=== PATIENT | female | born 1945 | race Caucasian/White ===

== ENCOUNTER 2017-12-30 17:06 | Emergency (ER) | payer SELFPAY ==
[2017-12-30 17:16] VITALS: BP 149/87; PULSE 88; RESP 18; TEMP 98.2; O2SAT 96
--- NOTE | 2017-12-30 17:36 | EDPHY ---
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 Today she was seen at the [facility] today at 11:00 a.m. and complained of a severe headache and nausea and vomiting. They noticed the deficits in her face and recommended she come to the ER to rule out stroke. The patient and her daughter however went to the wrong hospital and then decided to go out to lunch and then went back to the doctor's office before coming here. She states that over the last few hours her headache is completely resolved. No more nausea vomiting. No fever or trauma. She states that she feels completely normal and baseline. She does have left-sided facial droop and tongue deviation but states that this is normal. Her daughter confirms this. No weakness in her extremities. She did not receive any medications. REVIEW OF SYSTEMS: Constitutional: denies: chills, fever, recent illness, recent injury EENTM: denies: blurred vision, double vision, nose congestion Respiratory: denies: cough, shortness of breath Cardiac: denies: chest pain, irregular heart rate, lightheadedness, palpitations Gastrointestinal/Abdominal: denies: abdominal pain, diarrhea, nausea, vomiting, blood streaked stools Genitourinary: denies: dysuria, frequency, hematuria, pain Musculoskeletal: denies: joint pain, muscle pain Skin: denies: lesions, rash, jaundice, bruising Neurological: denies: headache, numbness, paresthesia, tingling, dizziness, weakness Hematologic/Lymphatic: denies: blood clots, easy bleeding, easy bruising Immunologic/allergic: denies: HIV/AIDS, transplant EXAM: GENERAL: Well-appearing, well-nourished and in no acute distress. HEAD: Atraumatic, normocephalic. EYES: Pupils equal round and reactive to light, extraocular movements intact, sclera anicteric, conjunctiva are normal. ENT: TMs normal, nares patent, oropharynx clear without exudates. Moist mucous membranes. NECK: Normal range of motion, supple without lymphadenopathy or JVD. LUNGS: Breath sounds clear to auscultation bilaterally and equal. No wheezes rales or rhonchi. HEART: Regular rate and rhythm without murmurs, rubs or gallops. ABDOMEN: Soft, nontender, normoactive bowel sounds. No guarding, no rebound. No masses appreciated. BACK: No CVA tenderness, no spinal tenderness, step-offs or deformities EXTREMITIES: Normal range of motion, no pitting or edema. No clubbing or cyanosis. NEUROLOGICAL: Right tongue deviation, left-sided facial droop when smiling which she and her daughter confirm a baseline. Normal speech. 5/5 strength, normal movement in all extremities, normal sensation, normal finger to nose, no pronator drift PSYCH: Normal mood, normal affect. SKIN: Warm, dry, normal turgor, no visible rashes or lesions. Source: Patient, Family Exam Limitations: Language barrier (Cardiac Cath Lab Radiology Technologist used) - Medical/Surgical History Hx Asthma: No Hx Chronic Respiratory Disease: No Hx Diabetes: Yes Hx Cardiac Disease: Yes Hx Renal Disease: No Hx Cirrhosis: No Hx Alcoholism: No Hx HIV/AIDS: No Hx Splenectomy or Spleen Trauma: No Other PMH: DM, head injuries, HTN, right BKA - Family History Significant Family History: No pertinent family hx - Social History Smoking Status: Never smoked Alcohol Use: Sober Drug Use: None Constitutional: Initial Vital Signs Temperature (C) 36.8 C 12/30/17 17:10 Heart Rate 88 12/30/17 17:10 Respiratory Rate 18 12/30/17 17:10 Blood Pressure 149/87 H 12/30/17 17:10 O2 Sat (%) 96 12/30/17 17:10 O2 Delivery Mode Room Air Allergies/Adverse Reactions: No Known Allergies Allergy (Unverified 12/30/17 17:09) Home Medications: Medication Instructions Recorded Insulin Lispro 12/30/17 Levimere 12/30/17 Lisinopril 12/30/17 Omeprazole 12/30/17 metFORMIN HCL 12/30/17 Medical Decision Making ED Course/Re-evaluation: The patient and her daughter state that she is now completely at her baseline and symptom free. I did offer workup but they declined. She then asked me for a prescription for vitamins. We discussed that there [id number]. She and her daughter happy with this in her eager to go home. We discussed indications for returning. Differential Diagnosis: Partial list of the Differential diagnosis considered include but were not limited to; headache, CVA, hemorrhage and although unlikely based on the history and physical exam, I also considered dissection, infection, trauma. I discussed these differential diagnoses and the plan with the patient as well as the usual and expected course. The patient understands that the diagnosis is provisional and that in medicine we are not always correct and that further workup is often warranted. Usual and customary warnings were given. All of the patient's questions were answered. The patient was instructed to return to the emergency department should the symptoms at all worsen or return, otherwise to followup with the physician as we discussed. Departure - Departure Disposition: Home, Routine, Self-Care Clinical Impression: Diabetes Qualifiers: Diabetes mellitus type: other specified (including JALEESA) Diabetes mellitus retirement insulin use: with panel machine tender use Diabetes mellitus complication status : with unspecified complications Qualified Code(s): E13.8 - Other specified diabetes mellitus with unspecified complications; Z79.4 - supplier quality specialist (current) use of insulin; Z79.4 - supplier quality specialist (current) use of insulin; Z79.4 - supplier quality specialist ( current) use of insulin; Z79.4 - supplier quality specialist (current) use of insulin Condition: Fair Instructions: Diabetes in the Older Adult (ED) Referrals: [facility] [Other] - As per Instructions Print Language: Greek
== END 2017-12-30 17:41 | disposition home or self-care (01) ==
DX: E13.8 Other specified diabetes mellitus with unspecified complications (principal); I10 Essential (primary) hypertension; Z79.4 Long term (current) use of insulin

== ENCOUNTER → 2018-04-08 | Outpatient (CLI) | payer OTHER | LOC: FIMAGING 10:34 | DX: I77.1 Stricture of artery (principal); I70.90 Unspecified atherosclerosis; S88.11 Complete traumatic amputation at level between knee and ankle ==

== ENCOUNTER 2018-12-19 15:08 | Inpatient (IN) | payer OTHER ==
--- NOTE | 2018-12-19 15:36 | EDPHY ---
H & P Time Seen by Provider: 12/19/18 15:10 HPI/ROS: CHIEF COMPLAINT: Stroke alert HISTORY OF PRESENT ILLNESS: Patient is a 72-year-old female whose children bring her to the emergency department because of some confusion and weakness in the left side of her face. The patient is Ukrainian-speaking only in even with an asl interpreter present the exam is very difficult. Son reports that she has a history of diabetes insulin-dependent as well as breast cancer with remote mastectomy and no recurrence and also CVA about 5 years ago the took her month or 2 to recover. Her son is not sure but he thinks that that was also on the left side of her face. She did tell her son that she had a mild headache today. He states that she has also had intermittent nausea throughout the last week. She is not on any blood thinners. Patient was last seen normal at 9:00 p.m. Last night. She slept until around noon today when family noticed the symptoms and brought her in. This is about 18 hours after last known well time. Severity: Moderate Modifying factors: None REVIEW OF SYSTEMS: Constitutional: denies: chills, fever, recent illness, recent injury EENTM: See HPI denies: blurred vision, double vision, nose congestion Respiratory: denies: cough, shortness of breath Cardiac: denies: chest pain, irregular heart rate, lightheadedness, palpitations Gastrointestinal/Abdominal: denies: abdominal pain, diarrhea, nausea, vomiting, blood streaked stools Genitourinary: denies: dysuria, frequency, hematuria, pain Musculoskeletal: denies: joint pain, muscle pain Skin: denies: lesions, rash, jaundice, bruising Neurological: denies: headache, numbness, paresthesia, tingling, dizziness, weakness Hematologic/Lymphatic: denies: blood clots, easy bleeding, easy bruising Immunologic/allergic: denies: HIV/AIDS, transplant 10 systems reviewed and negative except as noted EXAM: GENERAL: Well-appearing, well-nourished moderate distress HEAD: Atraumatic, normocephalic. EYES: Pupils equal round and reactive to light, extraocular movements intact, sclera anicteric, conjunctiva are normal. ENT: TMs normal, nares patent, oropharynx clear without exudates. Moist mucous membranes. NECK: Normal range of motion, supple without lymphadenopathy or JVD. LUNGS: Breath sounds clear to auscultation bilaterally and equal. No wheezes rales or rhonchi. HEART: Regular rate and rhythm without murmurs, rubs or gallops. ABDOMEN: Soft, nontender, normoactive bowel sounds. No guarding, no rebound. No masses appreciated. BACK: No CVA tenderness, no spinal tenderness, step-offs or deformities EXTREMITIES: Normal range of motion, no pitting or edema. No clubbing or cyanosis. NEUROLOGICAL: Left-sided facial droop, difficult to tell if it involved the forehead or not. No tongue deviation. Patient does not speak but response to commands from her son but has a difficult time following those commands precisely. Able to elevate legs without difficulty. No pronator drift. 5/5 strength, normal sensation, normal reflexes NIH stroke score of 6 because of partial gaze palsy they can be overcome. She primary looks to the right. Also partial hemianopia. Partial paralysis of the lower face on the left with possible involvement of the upper forehead. No drift in any of the 4 extremities. But this is difficult to test for because she is confused. Mild to moderate aphasia but no dysphagia. And 1+ inattention. PSYCH: Normal mood, normal affect. SKIN: Warm, dry, normal turgor, no visible rashes or lesions. Source: Patient Exam Limitations: No limitations - Medical/Surgical History Hx Asthma: No Hx Chronic Respiratory Disease: No Hx Diabetes: Yes Hx Cardiac Disease: Yes Hx Renal Disease: No Hx Cirrhosis: No Hx Alcoholism: No Hx HIV/AIDS: No Hx Splenectomy or Spleen Trauma: No Other PMH: DM, previous CVA, breast cancer with left mastectomy, head injuries, HTN, right BKA - Family History Significant Family History: No pertinent family hx - Social History Smoking Status: Never smoked Alcohol Use: None Constitutional: Initial Vital Signs Temperature (C) 36.6 C 12/19/18 15:36 Heart Rate 75 12/19/18 15:36 Respiratory Rate 18 12/19/18 15:36 Blood Pressure 187/98 H 12/19/18 15:36 O2 Sat (%) 97 12/19/18 15:36 O2 Delivery Mode Room Air Allergies/Adverse Reactions: No Known Allergies Allergy (Verified 12/19/18 15:35) Home Medications: Medication Instructions Recorded Herbals/Supplements -Info Only 1 ea PO DAILY 12/19/18 Insulin Detemir [Levemir Flextouch] 12 unit SQ HS 12/19/18 Lisinopril [Zestril 5 mg (*)] 5 mg PO DAILY 12/19/18 Medical Decision Making - Diagnostics EKG Interpretation: An EKG obtained and was read and documented in trace view. Please see trace view for full reading and report. Sinus rhythm, no acute ischemia Imaging Results: Imaging Impressions Head CT 12/19/18 15:17 Impression: 1. Mild atrophy. 2. No acute hemorrhage, hydrocephalus, or mass effect. 3. Severe cerebrovascular atherosclerosis. 4. No definite acute infarct. 5. Severe microvascular ischemic gliosis. 6. Multiple old lacunar infarcts bilateral basal ganglia, bilateral thalami, and old infarcts in the left temporal and occipital lobes. 7. Consider MRI of the brain, if there is continued clinical concern. Findings and recommendations discussed with Emergency Department physician, Joaquín Gonzalez, at 15:32 hours, 12/19/2018. Final report concurs with initial preliminary interpretation. Chest X-Ray 12/19/18 15:27 Impression: 1. Bilateral lower lobe pneumonia. 2. Cardiomegaly. Head CTA 12/19/18 15:48 Impression: 1. Left ICA critical stenosis extending for 2 cm with 99% ICA stenosis. 2. Right ICA moderate atherosclerotic stenosis is approximately 60%. 3. Patent vertebrobasilar system with a dominant right vertebral artery and atherosclerotic calcified plaque at the origins of both vertebral arteries and irregularity of the basilar artery suggesting cerebrovascular atherosclerosis. Measurement of carotid stenosis is based on the residual internal carotid diameter with [place] Symptomatic Carotid Endarterectomy Trial (NASCET) based stenosis levels. CT Angiogram of the Brain Clinical Indications: Left facial weakness. Technique: CT angiogram of the brain and neck was performed with the uneventful intravenous administration of 85 mL Isovue-370 contrast. Multiplanar reconstructions including 3D reconstructions performed and evaluated on [employer] workstation in order to better evaluate the [place] vessels. Images were manipulated by the radiologist at the computer workstation. Dose reduction techniques were utilized. Findings: Major vessels of the [place] are adequately displayed, demonstrating moderate atherosclerotic plaque bilateral cavernous internal carotid arteries. Multiple areas of mild atherosclerotic stenosis of the left middle cerebral artery branches. Multiple areas of moderate to severe atherosclerotic stenosis of the right middle cerebral artery bifurcation. Bilateral anterior cerebral arteries appear patent. origin of the right posterior cerebral artery. Superior sagittal sinus, transverse sinuses, and major veins demonstrate no evidence of intraluminal thrombi. Impression: 1. Moderate cerebrovascular atherosclerosis involving bilateral cavernous internal carotid arteries and right middle cerebral artery bifurcations. 2. No definite intraluminal thrombi. Findings and recommendations discussed with Emergency Department physician, Joaquín Gonzalez, at 1645 hours, 12/19/2018. Final report concurs with initial preliminary interpretation. Findings and recommendations given to Dr. Joey Barriga at 1800 hour, 12/19/2018. Neck CTA 12/19/18 15:48 Impression: 1. Left ICA critical stenosis extending for 2 cm with 99% ICA stenosis. 2. Right ICA moderate atherosclerotic stenosis is approximately 60%. 3. Patent vertebrobasilar system with a dominant right vertebral artery and atherosclerotic calcified plaque at the origins of both vertebral arteries and irregularity of the basilar artery suggesting cerebrovascular atherosclerosis. Measurement of carotid stenosis is based on the residual internal carotid diameter with [place] Symptomatic Carotid Endarterectomy Trial (NASCET) based stenosis levels. CT Angiogram of the Brain Clinical Indications: Left facial weakness. Technique: CT angiogram of the brain and neck was performed with the uneventful intravenous administration of 85 mL Isovue-370 contrast. Multiplanar reconstructions including 3D reconstructions performed and evaluated on [employer] workstation in order to better evaluate the [place] vessels. Images were manipulated by the radiologist at the computer workstation. Dose reduction techniques were utilized. Findings: Major vessels of the [place] are adequately displayed, demonstrating moderate atherosclerotic plaque bilateral cavernous internal carotid arteries. Multiple areas of mild atherosclerotic stenosis of the left middle cerebral artery branches. Multiple areas of moderate to severe atherosclerotic stenosis of the right middle cerebral artery bifurcation. Bilateral anterior cerebral arteries appear patent. origin of the right posterior cerebral artery. Superior sagittal sinus, transverse sinuses, and major veins demonstrate no evidence of intraluminal thrombi. Impression: 1. Moderate cerebrovascular atherosclerosis involving bilateral cavernous internal carotid arteries and right middle cerebral artery bifurcations. 2. No definite intraluminal thrombi. Findings and recommendations discussed with Emergency Department physician, Joaquín Gonzalez, at 1645 hours, 12/19/2018. Final report concurs with initial preliminary interpretation. Findings and recommendations given to Dr. Joey Barriga at 1800 hour, 12/19/2018. Imaging: Discussed imaging studies w/ call center receptionist Radiologist ED Course/Re-evaluation: 3:45 p.m. Discussed the case with Dr. Dao from [facility]. He agrees that she is not a tPA candidate. He requests CT angio. 5:00 p.m. discussed the case with General surgery who will consult. Recommends medical admission. 5:10 p.m. discussed the case with Dr. Hernandez who will admit. 5:30 p.m. discussed the case with Dr. Amaya from [facility]. She agrees with the plan to admit and have surgery intervene during this admission. Differential Diagnosis: Partial list of the Differential diagnosis considered include but were not limited to; CVA, hypoglycemia, and although unlikely based on the history and physical exam, I also considered hemorrhage, infection. - Data Points Laboratory Results: Laboratory Results 12/19/18 15:29 12/19/18 15:29 12/19/18 12/19/18 12/19/18 16:55 15:32 15:32 WBC RBC Hgb POC Hgb 14.6 gm/dL gm/dL (12.6-16.3) Hct POC Hct 43 % % (38-47) MCV MCH MCHC RDW Plt Count MPV Neut % (Auto) Lymph % (Auto) [place] % (Auto) Eos % (Auto) Baso % (Auto) Nucleat RBC Rel Count Absolute Neuts (auto) Absolute Lymphs (auto) Absolute Monos (auto) Absolute Eos (auto) Absolute Basos (auto) Absolute Nucleated RBC Immature Gran % Immature Gran # PT INR APTT POC Sodium 140 mEq/L mEq/L (135-145) Sodium POC Potassium 3.8 mEq/L mEq/L (3.3-5.0) Potassium POC Chloride 102 mEq/L mEq/L (97-110) Chloride Carbon Dioxide POC Total CO2 25 mEq/L mEq/L (22-31) Anion Gap POC BUN 18 mg/dL mg/dL (7-23) BUN Creatinine POC Creatinine 0.6 mg/dL mg/dL (0.6-1.0) Estimated GFR Glucose POC Glucose 250 mg/dL H mg/dL (70-100) Hemoglobin A1c Estim Average Glucose Calcium POC Troponin I 0.00 ng/mL ng/mL (0.00-0.08) Urine Color PALE YELLOW Urine Appearance CLEAR Urine pH 8.0 H (5.0-7.5) Ur Specific [place] 1.016 (1.002-1.030) Urine Protein 2+ H (NEGATIVE) Urine Ketones NEGATIVE (NEGATIVE) Urine Blood NEGATIVE (NEGATIVE) Urine Nitrate NEGATIVE (NEGATIVE) Urine Bilirubin NEGATIVE (NEGATIVE) Urine Urobilinogen NEGATIVE EU EU (0.2-1.0) Ur Leukocyte Esterase NEGATIVE (NEGATIVE) Urine RBC 1-3 /hpf /hpf (0-3) Urine WBC 1-3 /hpf /hpf (0-3) Ur Epithelial Cells TRACE /lpf /lpf (NONE-1+) Urine Glucose 1+ H (NEGATIVE) 12/19/18 12/19/18 12/19/18 15:29 15:29 15:29 WBC RBC Hgb POC Hgb Hct POC Hct MCV MCH MCHC RDW Plt Count MPV Neut % (Auto) Lymph % (Auto) [place] % (Auto) Eos % (Auto) Baso % (Auto) Nucleat RBC Rel Count Absolute Neuts (auto) Absolute Lymphs (auto) Absolute Monos (auto) Absolute Eos (auto) Absolute Basos (auto) Absolute Nucleated RBC Immature Gran % Immature Gran # PT 12.3 SEC SEC (12.0-15.0) INR 0.95 (0.83-1.16) APTT 28.0 SEC SEC (23.0-38.0) POC Sodium Sodium 136 mEq/L mEq/L (135-145) POC Potassium Potassium 4.1 mEq/L mEq/L (3.5-5.2) POC Chloride Chloride 104 mEq/L mEq/L (97-110) Carbon Dioxide 25 mEq/l mEq/l (22-31) POC Total CO2 Anion Gap 7 mEq/L mEq/L (6-14) POC BUN BUN 19 mg/dL mg/dL (7-23) Creatinine 0.7 mg/dL mg/dL (0.6-1.0) POC Creatinine Estimated GFR > 60 Glucose 238 mg/dL H mg/dL (70-100) POC Glucose Hemoglobin A1c Pending Estim Average Glucose Pending Calcium 9.4 mg/dL mg/dL (8.5-10.4) POC Troponin I Urine Color Urine Appearance Urine pH Ur Specific [place] Urine Protein Urine Ketones Urine Blood Urine Nitrate Urine Bilirubin Urine Urobilinogen Ur Leukocyte Esterase Urine RBC Urine WBC Ur Epithelial Cells Urine Glucose 12/19/18 15:29 WBC 6.05 10^3/uL 10^3/uL (3.80-9.50) RBC 4.59 10^6/uL 10^6/uL (4.18-5.33) Hgb 13.8 g/dL g/dL (12.6-16.3) POC Hgb Hct 40.1 % % (38.0-47.0) POC Hct MCV 87.4 fL fL (81.5-99.8) MCH 30.1 pg pg (27.9-34.1) MCHC 34.4 g/dL g/dL (32.4-36.7) RDW 12.7 % % (11.5-15.2) Plt Count 203 10^3/uL 10^3/uL (150-400) MPV 12.0 fL H fL (8.7-11.7) Neut % (Auto) 68.4 % % (39.3-74.2) Lymph % (Auto) 24.0 % % (15.0-45.0) [place] % (Auto) 6.8 % % (4.5-13.0) Eos % (Auto) 0.0 % L % (0.6-7.6) Baso % (Auto) 0.5 % % (0.3-1.7) Nucleat RBC Rel Count 0.0 % % (0.0-0.2) Absolute Neuts (auto) 4.14 10^3/uL 10^3/uL (1.70-6.50) Absolute Lymphs (auto) 1.45 10^3/uL 10^3/uL (1.00-3.00) Absolute Monos (auto) 0.41 10^3/uL 10^3/uL (0.30-0.80) Absolute Eos (auto) 0.00 10^3/uL L 10^3/uL (0.03-0.40) Absolute Basos (auto) 0.03 10^3/uL 10^3/uL (0.02-0.10) Absolute Nucleated RBC 0.00 10^3/uL 10^3/uL (0-0.01) Immature Gran % 0.3 % % (0.0-1.1) Immature Gran # 0.02 10^3/uL 10^3/uL (0.00-0.10) PT INR APTT POC Sodium Sodium POC Potassium Potassium POC Chloride Chloride Carbon Dioxide POC Total CO2 Anion Gap POC BUN BUN Creatinine POC Creatinine Estimated GFR Glucose POC Glucose Hemoglobin A1c Estim Average Glucose Calcium POC Troponin I Urine Color Urine Appearance Urine pH Ur Specific [place] Urine Protein Urine Ketones Urine Blood Urine Nitrate Urine Bilirubin Urine Urobilinogen Ur Leukocyte Esterase Urine RBC Urine WBC Ur Epithelial Cells Urine Glucose Medications Given: Discontinued Medications Aspirin (Aspirin) 325 mg PO EDNOW ONE Stop: 12/19/18 16:45 Last Admin: 12/19/18 16:46 Dose: 325 mg Sodium Chloride (Ns) 1,000 mls @ 0 mls/hr IV ONCE ONE; Wide Open PRN Reason: Protocol Stop: 12/19/18 15:39 Last Admin: 12/19/18 15:50 Dose: 1,000 mls Point of Care Test Results: Chemistry 12/19/18 12/19/18 15:32 15:32 POC Sodium 140 mEq/L mEq/L (135-145) POC Potassium 3.8 mEq/L mEq/L (3.3-5.0) POC Chloride 102 mEq/L mEq/L (97-110) POC Total CO2 25 mEq/L mEq/L (22-31) POC BUN 18 mg/dL mg/dL (7-23) POC Creatinine 0.6 mg/dL mg/dL (0.6-1.0) POC Glucose 250 mg/dL H mg/dL (70-100) POC Troponin I 0.00 ng/mL ng/mL (0.00-0.08) ISTAT H&H 12/19/18 15:32 POC Hgb 14.6 gm/dL gm/dL (12.6-16.3) POC Hct 43 % % (38-47) Departure - Departure Disposition: [facility] Inpatient Acute Clinical Impression: Acute ischemic stroke, Carotid stenosis, bilateral Condition: Fair
[2018-12-19] MEDS ORDERED: NS 1,000 ML IV ONE (15:38)
[2018-12-19 15:41] LABS: PLATELET COUNT 203 10^3/uL (150-400)
[2018-12-19] MEDS ORDERED: IOPAMIDOL (ISOVUE 370) 100 ML BTL IV ONE (15:53)
[2018-12-19 16:00] LABS: INR 0.95 (0.83-1.16); PROTIME(PATIENT) 12.3 SEC (12.0-15.0)
[2018-12-19] MEDS ORDERED: ASPIRIN 325 MG TAB PO ONE (16:44)
[2018-12-19] MEDS ORDERED: LABETALOL HCL 5 MG/ML 20 ML MDV IVP PRN (17:26)
--- NOTE | 2018-12-19 17:31 | PDGENHP ---
History and Physical - Chief Complaint confusion - History of Present Illness 72yo Togolese speaking F with history of CVA (no residual deficits), diabetes, hypertension who is brought to the ED by her children due to confusion and left facial droop. Patient is unable to provide information; history obtained from son with whom she lives. She was last seen normal prior to going to bed around 9pm lat night. Slept until around 11am today, which was late for her. Family noticed that she was confused when she woke up and having difficulty putting on her right leg prosthesis. While eating lunch, family noted left facial droop and her drooling out of the left side of her mouth. She reported to her son that she couldn't see when driving to the ED. In the ED, a stroke alert was called. She was evaluated by [facility] teleneurology. No TPA was given her last known normal was roughly 18 hours prior. Non-contrasted CT of her head showed no acute findings. CTA of head and neck showed critical stenosis (99%) of left carotid and 60% stenosis of right carotid artery. Dr Barriga of surgery was consulted regarding these findings. She was given 325mg of aspirin and is being admitted for additional evaluation and management. Case discussed with ED physician Joaquín Aparicio. History Information - Allergies/Home Medication List Allergies/Adverse Reactions: No Known Allergies Allergy (Verified 12/19/18 15:35) Home Medications: Herbals/Supplements -Info Only 1 ea PO DAILY 12/19/18 [Last Taken 12/19/18] Insulin Detemir [Levemir Flextouch] 12 unit SQ HS 12/19/18 [Last Taken 12/18/18] Lisinopril [Zestril 5 mg (*)] 5 mg PO DAILY 12/19/18 [Last Taken 12/19/18] I have personally reviewed and updated: family history, medical history, social history, surgical history - Past Medical History Additional medical history: insulin dependent diabetes, HTN, CVA with no residual deficits (occurred 4-5 years ago in [place]), breast cancer, GERD - Surgical History Additional surgical history: Right BKA (complication of diabetes), right mastectomy - Family History Positive for: non-pertinent - Social History Smoking Status: Never smoked Alcohol Use: None Drug Use: None Additional social history: Has been living with son in [place] since 11/2017. Previously lived in [place]. Review of Systems Review of Systems: ROS: 10pt was reviewed & negative except for what was stated in HPI & below Physical Exam Physical Exam: Temp Pulse Resp BP Pulse Ox 36.6 C 76 16 194/88 H 95 12/19/18 15:36 12/19/18 17:29 12/19/18 17:29 12/19/18 17:29 12/19/18 17:29 Constitutional: no apparent distress Eyes: PERRL, anicteric sclera Ears, Nose, Mouth, Throat: dry mucous membranes Cardiovascular: regular rate and rhythym, no murmur, rub, or gallop, No edema Respiratory: no respiratory distress, no rales or rhonchi, clear to auscultation Gastrointestinal: normoactive bowel sounds, soft, non-tender abdomen, no palpable masses Genitourinary: no bladder fullness, no bladder tenderness Skin: warm, normal color, no rashes or abrasions, no fluctuance, no induration, No mottled Neurologic: facial droop, other (alert, oriented to person and place only, tongue protrudes to right, significant left upper and lower facial droop, otherwise CN and motor strength appear intact), No weakness Psychiatric: encephalopathic Lab Data & Imaging Review 12/19/18 15:29 12/19/18 15:29 WBC 6.05 10^3/uL (3.80-9.50) 12/19/18 15:29 RBC 4.59 10^6/uL (4.18-5.33) 12/19/18 15:29 Hgb 13.8 g/dL (12.6-16.3) 12/19/18 15:29 POC Hgb 14.6 gm/dL (12.6-16.3) 12/19/18 15:32 Hct 40.1 % (38.0-47.0) 12/19/18 15:29 POC Hct 43 % (38-47) 12/19/18 15:32 MCV 87.4 fL (81.5-99.8) 12/19/18 15:29 MCH 30.1 pg (27.9-34.1) 12/19/18 15:29 MCHC 34.4 g/dL (32.4-36.7) 12/19/18 15:29 RDW 12.7 % (11.5-15.2) 12/19/18 15: Plt Count 203 10^3/uL (150-400) 12/19/18 15: MPV 12.0 fL (8.7-11.7) H 12/19/18 15:29 Neut % (Auto) 68.4 % (39.3-74.2) 12/19/18 15: Lymph % (Auto) 24.0 % (15.0-45.0) 12/19/18 15:29 Collin % (Auto) 6.8 % (4.5-13.0) 12/19/18 15: Eos % (Auto) 0.0 % (0.6-7.6) L 12/19/18 15: Baso % (Auto) 0.5 % (0.3-1.7) 12/19/18 15: Nucleat RBC Rel Count 0.0 % (0.0-0.2) 12/19/18 15: Absolute Neuts (auto) 4.14 10^3/uL (1.70-6.50) 12/19/18 15: Absolute Lymphs (auto) 1.45 10^3/uL (1.00-3.00) 12/19/18 15: Absolute Monos (auto) 0.41 10^3/uL (0.30-0.80) 12/19/18 15:29 Absolute Eos (auto) 0.00 10^3/uL (0.03-0.40) L 12/19/18 15: Absolute Basos (auto) 0.03 10^3/uL (0.02-0.10) 12/19/18 15: Absolute Nucleated RBC 0.00 10^3/uL (0-0.01) 12/19/18 15: Immature Gran % 0.3 % (0.0-1.1) 12/19/18 15: Immature Gran # 0.02 10^3/uL (0.00-0.10) 12/19/18 15:29 PT 12.3 SEC (12.0-15.0) 12/19/18 15: INR 0.95 (0.83-1.16) 12/19/18 15:29 APTT 28.0 SEC (23.0-38.0) 12/19/18 15:29 POC Sodium 140 mEq/L (135-145) 12/19/18 15:32 Sodium 136 mEq/L (135-145) 12/19/18 15:29 POC Potassium 3.8 mEq/L (3.3-5.0) 12/19/18 15:32 Potassium 4.1 mEq/L (3.5-5.2) 12/19/18 15:29 POC Chloride 102 mEq/L (97-110) 12/19/18 15:32 Chloride 104 mEq/L (97-110) 12/19/18 15:29 Carbon Dioxide 25 mEq/l (22-31) 12/19/18 15:29 POC Total CO2 25 mEq/L (22-31) 12/19/18 15:32 Anion Gap 7 mEq/L (6-14) 12/19/18 15:29 POC BUN 18 mg/dL (7-23) 12/19/18 15:32 BUN 19 mg/dL (7-23) 12/19/18 15:29 Creatinine 0.7 mg/dL (0.6-1.0) 12/19/18 15:29 POC Creatinine 0.6 mg/dL (0.6-1.0) 12/19/18 15:32 Estimated GFR > 60 12/19/18 15:29 Glucose 238 mg/dL (70-100) H 12/19/18 15:29 POC Glucose 250 mg/dL (70-100) H 12/19/18 15:32 Calcium 9.4 mg/dL (8.5-10.4) 12/19/18 15:29 POC Troponin I 0.00 ng/mL (0.00-0.08) 12/19/18 15:32 Urine Color PALE YELLOW 12/19/18 16:55 Urine Appearance CLEAR 12/19/18 16:55 Urine pH 8.0 (5.0-7.5) H 12/19/18 16:55 Ur Specific Rosie 1.016 (1.002-1.030) 12/19/18 16:55 Urine Protein 2+ (NEGATIVE) H 12/19/18 16:55 Urine Ketones NEGATIVE (NEGATIVE) 12/19/18 16:55 Urine Blood NEGATIVE (NEGATIVE) 12/19/18 16:55 Urine Nitrate NEGATIVE (NEGATIVE) 12/19/18 16:55 Urine Bilirubin NEGATIVE (NEGATIVE) 12/19/18 16:55 Urine Urobilinogen NEGATIVE EU (0.2-1.0) 12/19/18 16:55 Ur Leukocyte Esterase NEGATIVE (NEGATIVE) 12/19/18 16:55 Urine RBC 1-3 /hpf (0-3) 12/19/18 16:55 Urine WBC 1-3 /hpf (0-3) 12/19/18 16:55 Ur Epithelial Cells TRACE /lpf (NONE-1+) 12/19/18 16:55 Urine Glucose 1+ (NEGATIVE) H 12/19/18 16:55 Assessment & Plan Assessment: 72yo Togolese speaking F with history of CVA (no residual deficits), diabetes, hypertension who is brought to the ED by her children due to confusion and left facial droop found to have acute stroke. Plan: #Acute ischemic cerebral CVA: Right sided watershed infarct and 2 smaller cortical infarcts. She has not been hypotensive. Involvement of multiple territories raises concern for thromboembolic disease. She has critical stenosis of carotids which could be culprit. No acute thrombus was seen on CTA of her head/neck. She does have significant neurologic deficits as outlined in exam. - Out of window for TPA - Neurology consultation order placed - Start aspirin 81mg (she was not on any antiplatelet therapy prior to this despite history of CVA in past), atorvastatin 40mg - TTE w/bubble, telemetry - Permissive hypertension (SBP<220, DBP<120) - PT/OT/EQUIPMENT MAINTENANCE TECHNICIAN evaluation #Critical carotid stenosis: 99% on left, 60% on right. - Dr Barriga of general surgery consulted. Plan for surgical management once acute stroke stabilizes. #Acute metabolic encephalopathy: Related to stroke. At risk for delirium. - Avoid centrally acting medications #Diabetes - Reduce home glargine from 12 to 6 units qhs. Start SSI #H/o breast cancer s/p right mastectomy VTE ppx: SCDs Diet: failed swallow study in ED. will start normal saline overnight. needs formal EQUIPMENT MAINTENANCE TECHNICIAN eval in AM Code: full per discussion with son Dispo: Admit as inpatient
[2018-12-19] MEDS ORDERED: ENALAPRILAT DIHYDRATE 2.5 MG/2 ML VIAL IVP PRN (18:35)
[2018-12-19] MEDS ORDERED: D50W 25 GM/50 ML SYR IVP PRN (18:36)
[2018-12-19] MEDS ORDERED: NS 1,000 ML IV SCH (20:15)
[2018-12-19] MEDS ORDERED: INSULIN GLARGINE 100 UNITS/ML UNIT SC SCH (21:00)
[2018-12-19] MEDS: INSULIN GLARGINE 100 UNITS/ML UNIT SC SCH (21:06)
--- NOTE | 2018-12-20 05:25 | GCON ---
[f rep st] CONSULTATION DATE OF CONSULTATION: 12/19/2018 REASON FOR EVALUATION: Stroke. REQUESTING PHYSICIAN: Joaquín Gonzalez MD. 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 She was noted to be somewhat lethargic last evening without any specific complaints today. Her sons noticed that she was unable to move the left side of her body, along with a left-sided facial droop with a right-sided headache. Per emergency room records, she was also with complaints of nausea. The patient's history is difficult to obtain directly, even via turner machine operator and her son. Significantly, the patient normally does ambulate without difficulty with the use of her prosthesis without limitations in distance. She denies any antecedent history of chest pain. She denies any current visual changes or difficulty swallowing. She is unaware of recurrent symptoms. Per records, she may have suffered from a prior remote stroke as well. PAST MEDICAL HISTORY: Hypertension, diabetes, breast carcinoma, history of closed head injury. PAST SURGICAL HISTORY: Right mastectomy, right below-knee amputation. HOME MEDICATIONS: Lispro, Levemir, lisinopril, omeprazole, metformin. ALLERGIES: No known drug allergies. SOCIAL HISTORY: No alcohol. No tobacco. She lives at home with 2 sons. FAMILY HISTORY: Noncontributory. REVIEW OF SYSTEMS: Notable for acute stroke symptoms. PHYSICAL EXAMINATION: ADMITTING VITALS: Temperature 36.6, blood pressure 190/ 100, heart rate 75, respirations 18. GENERAL: Patient is alert, appropriate, comfortable. HEENT: Pupils are equally round and reactive to light and accommodation. Extraocular muscles are intact. NECK: 2+ carotid pulses without appreciable bruit. No vertebral bruits. HEART: Regular without murmur. LUNGS: Clear bilaterally. ABDOMEN: Soft and nontender. No pulsatile masses. No bruits. EXTREMITIES: 2+ radial, brachial, carotid, femoral pulses. Absent bilateral popliteal pulses as well as left pedal pulses. Well-healed right below-knee amputation stump. NEUROLOGIC: Speech is normal. Notable left-sided facial droop as well as left upper and lower extremity weakness. Sensation symmetric bilateral upper and lower extremities. LABORATORY DATA: Hemoglobin 14, white count 6, platelets of 200. INR 0.95. Electrolytes within reference range. Glucose 250. Troponin negative. IMAGING: CT head and neck images were directly reviewed on PACS and with on- call radiologist. CT head with multiple scattered lacunar infarcts bilaterally with chronic age-related atrophy. CT neck: Critical left carotid stenosis with 2 cm segment calcific plaque with relatively preserved proximal and distal carotid arteries, right neck with approximately 60% mixed plaque with chronic calcific plaque as well as soft plaque contributing to focal proximal internal carotid artery narrowing. IMPRESSIONS: 1. Acute stroke. 2. Bilateral carotid artery stenosis, left greater than right. 3. History of diabetes. 4. History of hypertension. 5. History of breast cancer. PLAN: The patient is being admitted to the medical service for further evaluation and management. Antiplatelet therapy has been initiated in the emergency room. Would recommend consideration for staged bilateral carotid endarterectomy, asymptomatic high-grade left, followed by her symptomatic right. Would recommend medical optimization prior to surgical intervention with endarterectomy to be considered within the next week. Further recommendations pending clinical course. These findings and recommendations were discussed with the patient and son in [place]i directly, and with the assistance of turner machine operator as well. Care plan was also reviewed with the hospitalist physician contracting officer. /[id number]/MODL MTDD
--- NOTE | 2018-12-20 07:13 | SOAPPROG ---
SOAP Progress Note Assessment/Plan: Assessment:no overnight complaints. headache better. MRI with right side watershed infarct. afebrile. BP 140/90. more alert, communicative today. answering questions more appropriately. heart reg. lungs clear. neuro with less left facial droop. tongue midine. stronger LUE/LLE. acute CVA. bilateral carotid stenosis L>>R. recommend supportive care for now with ASA/BP mgmnt/lipid lowering therapy. PT/OT/ST. plan for bilateral CEA in the next 1- 2 weeks - left then right - same visit barring any issues. plan reviewed with patient/son who express understanding and appreciation. discussed with nursing staff. Plan: 12/20/18 07:09 Objective: Vital Signs Temp Pulse Resp BP Pulse Ox 36.7 C 74 18 146/76 H 94 12/20/18 04:00 12/20/18 04:00 12/20/18 04:00 12/20/18 04:00 12/20/18 04:00 Laboratory Results 12/20/18 04:33 12/19/18 12/20/18 12/21/18 05:59 05:59 05:59 Output Total 850 Balance -850 PT 12.3 SEC (12.0-15.0) 12/19/18 15:29 INR 0.95 (0.83-1.16) 12/19/18 15:29 ICD10 Worksheet Patient Problems: Problems Problem Status Onset Acute ischemic stroke Acute Carotid stenosis, bilateral Acute Diabetes Acute
--- NOTE | 2018-12-20 08:42 | PDMN ---
Medical Necessity Medical necessity: Pt meets inpt criteria per MD order and [facility] M-83, Stroke: Ischemic, 2 days. 72 y/o presented to ED w/confusion and L facial droop, admitted w/acute iischemic CVA, MRI shows R sided watershed infarct and 2 smaller cortical infarcts, critical stenosis of carotids (99%on L and 60% on R) , surg consult- likely bilat CEA next 1-2 weeks when med stable. PT/OT/SP evals pending, failed swallow eval in ED. Est LOS>2MN for ongoing eval/management of above.
--- NOTE | 2018-12-20 10:21 | ASMTCMCOM ---
CM Note CM Note Notes: Patient admitted after acute ischemic CVA, outside window for tPA. She lives with her son and DIL. PT/OT/FACTORY LAY OUT ENGINEER have been ordered. Patient will likely have needs, possibly including a CEA in 1-2 weeks. She is uninsured. Case Management will follow. Date Signed: 12/20/2018 10:21 AM Electronically Signed By:Samantha Live RN
--- NOTE | 2018-12-20 10:41 | GCON ---
[f rep st] CONSULTATION NEUROLOGIC CONSULTATION The patient is a 72-year-old woman who I am asked to see in neurologic consultation regarding stroke. History Is obtained from the patient through the adult crossing guard, as well as the patient's son who speak s [place] and [place] fairly well, and is able to give reliable history, but the patient cannot. Two nights ago, she went to bed and seemed to be doing fine, but then yesterday when she got up around 1 1:30 in the morning or so, she was clearly having some trouble with her mental state of mild confusio n, and had some trouble coordinating activities such as putting on a right leg prosthesis, and some l eft facial droop and drooling from the left side of her mouth, and there might have had some generali zed weakness. She had an emergency room evaluation, and no tPA was recommended given 18 hours since the event, and no large vessel occlusion was identified on the CTA, but she had nearly 99% estimated narrowing on the left carotid and at least 60% on the right. She had Surgery consultation through Dr Kaya Barriga, who recommended that endarterectomy in a staged process of the left followed by the right may be appropriate within the next 2 weeks, and she is started on aspirin now. At home, she was noted to be taking insulin for her diabetes and lisinopril. Since admission, her son says that the speech is much better. Yesterday for example, he said she had inability to speak other than some sounds for many minutes in conjunction with that acute drooping a nd drooling happening over the left side of the face, and all of that is certainly much better. She is now communicating with him and still has a little bit of confusion for details, but is speaking Sp connie. He says she does not know how to read and write normally but can communicate and carry out ac tivities of daily living independently. He says she does not have any known dementia. PAST MEDICAL HISTORY: Notable for amputation of the right leg from complications of diabetes and wha t sounds like an infection many years ago. He is not aware of her having known neuropathy, but he is really not certain. She normally lives in [place], and has been here over the last year, and is [place] to go back to [place], but that is very unclear. No smoking or alcohol or drug use. In addition t o her history of insulin-dependent diabetes, she has a history of hypertension. She did have a strok e about 4 or 5 years ago in [place] without residual deficits, history of breast cancer, and reflux di sease. Here in the hospital, she currently is on aspirin 81 mg daily, Lipitor 40 mg, enalapril, insulin. ALLERGIES: No known allergies. REVIEW OF SYSTEMS: Unremarkable except for that noted above. The patient's NIH stroke scale is a li ttle hard to say with certainty, but the best I can tell, at least that a 3 given the mild aphasia, s ome left side weakness, and a little bit of facial asymmetry. EXAMINATION: She is lethargic, but arousable, and communicates slowly in [place] through the transla tor. She can repeat a phrase. She can generally name objects. She has some trouble with calculatio n of making change, but has the basic concept in mind. Her spontaneous speech is reduced below emy l, and that ability to express herself right now would not suggest very prominent aphasia, if any. S he speaks softly, but I am not sure of a true dysarthria. Palate elevates symmetrically. Tongue pro trudes midline. Facial sensation seems to be preserved bilaterally. No definite vision loss. Extra ocular movements intact. Motor exam reveals some generalized weakness, maybe a little weaker on the left than the right, but that is hard to say for sure. Reflexes are 1+. Left Babinski sign. Sensat ion in the extremities seems to be preserved at least. DIAGNOSTIC STUDIES: As outlined above. I have reviewed the MRI directly, and agree with the radiolo gi interpretation of the significant areas of subacute to acute ischemia throughout much of the righ t hemisphere, middle cerebral to anterior cerebral watershed areas, and toward the occipital lobe on the right, as well. No acute left hemisphere ischemic change. There is not mass effect or hemorrhag e, but throughout the right frontal, parietal, and occipital region, there is the ischemic change on diffusion weighted imaging. LABORATORY STUDIES: Unremarkable CBC, INR. Chemistries notable for glucose currently 135, LDL rao sterol 149. IMPRESSION: Total unit time of 75 minutes. This patient has an acute stroke evolving over the last 48 hours most likely the way everything is described, and most of these ischemic changes are in the r ight hemisphere where there is a watershed distribution to some degree and coexisting severe left int ernal carotid artery stenosis at 99% and right at least 60% creating a risk of this type phenomenon. The likelihood of multiple emboli is thought to be less likely. She is being monitored and no arrhy thmias are seen. Her risk factors are hypertension, age, prior history of stroke, and diabetes. She has improved rather dramatically in speech over the last 24 hours according to her son, but remains at extremely high risk of stroke. I agree with the current plan for stabilizing through physical, oc cupational, and speech therapy, and continuing aspirin. I agree with initiation of statin therapy. Consideration is already being given to staged endarterectomy starting on the left, which is probably symptomatic as well as the right, but this is extremely hard to say for sure, and weighing risks and benefits will be the best we can do given her current situation. My recommendation would be to jasbir tor for stability, and consider an endarterectomy, perhaps 10-14 days from now, based on current lite rature supporting surgical interventions within 2 weeks of [id number] stroke where there is shannon vageable tissue. More acute endarterectomy is not recommended because of the potential increased mor bidity and mortality. None of these parameters can definitively be applied to an individual patient, but everyone from Dr. Barriga to myself to the hospitalist to the patient's son and the patient herself, can give general guidance, and her son seems to understand. At this point, Neurology will be available for any other questions, but there is no other interventio n other than what is currently outlined, and consideration of followup for endarterectomy through Dr. Barriga if they choose to work with him in the future. As to whether she can be safely discharged versu s require prolonged hospitalization is also hard to say definitively. If over the next few days she reaches a stable point of being able to be home with her son, that would be a reasonable consideratio n, with elective for return later for the endarterectomy procedures, again, if that is something Surg nilesh and the patient agree is in her best interest. Echocardiogram should also be performed for [facility] risk assessment. /[id number]/MODL
[2018-12-20] MEDS: INSULIN LISPRO 100 UNIT/ML SC SCH ×3 (12:06→18:57)
--- NOTE | 2018-12-20 12:33 | HOSPPROG ---
Hospitalist Progress Note Assessment/Plan: 72yo Romanian speaking F with history of CVA (no residual deficits), diabetes, hypertension who is brought to the ED by her children due to confusion and left facial droop found to have acute stroke. #Acute ischemic cerebral CVA: Right sided watershed infarct and 2 smaller cortical infarcts. Involvement of multiple territories raises concern for thromboembolic disease but likely due to bilateral Carotid Stenosis. No acute thrombus was seen on CTA of her head/neck. - Out of window for TPA - Neurology following - Start aspirin 81mg (she was not on any antiplatelet therapy prior to this despite history of CVA in past), atorvastatin 40mg (LDL 149, was not on statin prior) - TTE w/bubble, telemetry, this is pending - Permissive hypertension (SBP<220, DBP<120). Would restart home BP meds tomorrow. - PT/OT/PLANT PATHOLOGIST evaluation #Critical carotid stenosis: 99% on left, 60% on right. - Dr Barriga of general surgery consulted. Plan for surgical management once acute stroke stabilizes and medical mgmt is optimized. This can hopefully done w /i 14 days from the stroke and per Neuro in [address] Barriga is following. The pt will need to have a f/u appt with Dr. Barriga for next week to finalize plans. #Acute metabolic encephalopathy: Related to stroke. At risk for delirium. - Avoid centrally acting medications #Diabetes - Reduce home glargine from 12 to 6 units qhs. cont SSI #H/o breast cancer s/p right mastectomy VTE ppx: SCDs Diet: PLANT PATHOLOGIST eval is pending. Fluids have been stopped Code: full per discussion with son Dispo: Admit as inpatient. Keep overnight tonight. Possible d/c tomorrow Subjective: PLANT PATHOLOGIST eval is being performed. Still somewhat confused son and daughter in law in room. no cpr or sob. BP ok Objective: Vital Signs Temp Pulse Resp BP Pulse Ox 36.7 C 73 14 159/80 H 93 12/20/18 07:41 12/20/18 07:41 12/20/18 07:41 12/20/18 07:41 12/20/18 07:41 Laboratory Results 12/20/18 04:33 12/19/18 12/20/18 12/21/18 05:59 05:59 05:59 Output Total 850 200 Balance -850 -200 PT 12.3 SEC (12.0-15.0) 12/19/18 15:29 INR 0.95 (0.83-1.16) 12/19/18 15:29 - Physical Exam Constitutional: no apparent distress Eyes: PERRL Ears, Nose, Mouth, Throat: moist mucous membranes, hearing normal Cardiovascular: regular rate and rhythym, No edema Respiratory: no respiratory distress, no rales or rhonchi, clear to auscultation Gastrointestinal: normoactive bowel sounds Skin: warm Neurologic: No AAOx3 Psychiatric: interacting appropriately, not anxious, encephalopathic Lymph, Heme, Immunologic: No petechiae ICD10 Worksheet Patient Problems: Problems Problem Status Onset Acute ischemic stroke Acute Carotid stenosis, bilateral Acute Diabetes Acute
--- NOTE | 2018-12-20 14:31 | ECHO ---
[email or web address] [address] [address] Main: [phone] Fax: Transthoracic Echocardiogram Name: RADHA NARAYAN MR#: [id number] Study Date: 12/20/2018 Study Time: 09:57 AM Date of : 09/19/1946 Age: 72 year(s) Height: 154.9 cm (61 in.) Weight: 70.31 kg (155 lb.) BSA: 1.7 m2 Gender: Female Examination: Complete Echo with Agitated Saline Indication: Ischemic stroke Image Quality: Adequate Contrast: I.V. dose of agitated saline Requested by: Sam Hernandez BP: 159 mmHg/80 mmHg Heart Rate: Rhythm: Indication: Ischemic stroke Procedure Staff Dietary Director: Kathy Corea [facility] Reading Physician: Kristen Mcgee MD Requesting Provider: Conclusions: Normal size left ventricle. There is a sigmoid shaped septum is present, which is a normal finding in the elderly. . Normal global systolic LV function. EF is 67 %. No regional wall motion abnormality. An agitated saline study was performed and was positive for intracardiac shunting. Mild mitral valve regurgitation is present. Pulmonary artery pressure is not obtained due to inadequate TR jet. No pericardial effusion. There is no previous echocardiogram for comparison. Measurements: Chambers Valvular Assessment AV/MV Valvular Assessment TV/PV Normal Normal Normal Name Value Range Name Value Range Name Value Range Ao Nancy (MM): 3.2 cm (2.2 cm-3.7 AV Vmax: 0.93 m/s (1 m/s-1.7 PV Vmax: 0.77 m/s (0.6 m/s-0.9 cm) m/s) m/s) IVSd (2D): 1.0 cm (0.6 cm-1.1 AV maxP mmHg ( - ) PV PGmax: 2 mmHg ( - ) cm) LVOT Vmax: 0.87 m/s (0.7 m/s-1.1 LVDd (2D): 3.7 cm (3.9 cm-5.3 m/s) cm) MICHELLE (Vmax): 2.9 cm2 ( - ) LVDs (2D): 2.2 cm (2.1 cm-4 MV E Vmax: 0.48 m/s ( - ) cm) MV A Vmax: 0.98 m/s ( - ) LVPWd (2D): 0.8 cm ( - ) MV E/A: 0.49 ( - ) LVOTd 2.0 cm 2.0 cm mm LVEF (BP): 67 % (>=55 %) RVDd(2D): 2.8 cm (1.9 cm-3.8 cmmm) Continued Measurements: Patient: RADHA NARAYAN Study Date: 12/20/2018 Page 1 of 2 09:57 AM Chambers Valvular Assessment AV/MV Name Value Name Value LADs: 3.0 cm MV DecTime: 187 m/s LADs Lon.9 cm MV E' Septal: 0.04 m/s LA Area: 16.4 cm2 MV E/E' Septal: 13.40 TAPSE: 1.7 cm MV E/E' Lateral: 8.10 RA Area: 9.2 cm2 Findings: Left Ventricle: Normal size left ventricle. There is a sigmoid shaped septum is present, which is a normal finding in the elderly. . Normal global systolic LV function. EF is 67 %. No regional wall motion abnormality. Unable to assess diastolic dysfunction. Left Atrium: The left atrium is normal in size. An agitated saline study was performed and was positive for intracardiac shunting. LA index 17.1ml/m2. Right Atrium: The right atrium is normal in size. Mitral Valve: There is mild thickening of the mitral valve leaflets. Mild mitral valve regurgitation is present. No mitral stenosis is present. Aortic Valve: The aortic valve is tri-leaflet. Aortic sclerosis is present. There is no aortic valve regurgitation. No aortic valve stenosis is present. Tricuspid Valve: The tricuspid valve is normal in appearance and function. Trivial tricuspid valve regurgitation. Pulmonary artery pressure is not obtained due to inadequate TR jet. Pulmonic Valve: Pulmonary valve not well visualized. Trivial pulmonic valve regurgitation. Aorta: Normal size aortic root measuring 3.2 cm. IVC: Normal size and course of the IVC. Pericardium: No pericardial effusion. (No Signature Object) Patient: RADHA NARAYAN Study Date: 12/20/2018 Page 2 of 2 09:57 AM [id number]
[2018-12-20] MEDS: ATORVASTATIN CALCIUM 40 MG TAB PO SCH (15:18)
[2018-12-20] MEDS: ASPIRIN 81 MG CHEWABLE TAB PO SCH (15:19)
[2018-12-20] MEDS: ACETAMINOPHEN 325 MG TAB PO PRN (15:19)
[2018-12-20] MEDS: INSULIN GLARGINE 100 UNITS/ML UNIT SC SCH (21:20)
[2018-12-21] MEDS: INSULIN LISPRO 100 UNIT/ML SC SCH ×3 (08:08→17:55)
--- NOTE | 2018-12-21 08:22 | SOAPPROG ---
SOAP Progress Note Assessment/Plan: Assessment:no overnight complaints. no headache. feeling good. afebrile. BP 180/90. more alert, communicative today. answering questions appropriately. neuro with better symmetry today. tongue midine. stronger LUE/LLE still. acute CVA. bilateral carotid stenosis L>>R (symptomatic right). recommend continued supportive care for now with ASA/BP mgmnt/lipid lowering therapy. PT/ OT/ST. plan for bilateral CEA in the next 1-2 weeks - left then right - same visit barring any issues. plan re-reviewed with patient/son who express understanding and appreciation. discussed with nursing staff. will likely need rehab. Plan: 12/20/18 07:09 12/21/18 08:21 12/21/18 08:22 Objective: Vital Signs Temp Pulse Resp BP Pulse Ox 36.7 C 66 16 179/94 H 92 12/21/18 07:44 12/21/18 07:44 12/21/18 07:44 12/21/18 07:44 12/21/18 07:44 Laboratory Results 12/20/18 04:33 12/20/18 12/21/18 12/22/18 05:59 05:59 05:59 Intake Total 800 Output Total 850 500 Balance -850 300 PT 12.3 SEC (12.0-15.0) 12/19/18 15:29 INR 0.95 (0.83-1.16) 12/19/18 15:29 ICD10 Worksheet Patient Problems: Problems Problem Status Onset Acute ischemic stroke Acute Carotid stenosis, bilateral Acute Diabetes Acute
--- NOTE | 2018-12-21 08:57 | HOSPPROG ---
Hospitalist Progress Note Assessment/Plan: #Acute ischemic CVA: right-sided watershed and 2 cortical infarcts -no t-pA given; outside window. -CTA shows critical stenosis left ICA, 60% right ICA -Dr. Barriga evaluated -ASA, statin, PT/OT/SPL -home with family care 12/05 #HTN: >48hrs since CVA. Start anti-hypertensives slowly #Critical stenosis: Neuro recs medical stablization first, then surgery in 10- 14 days -99% left, 60% right #Acute metabolic encephalopathy: Related to stroke. At risk for delirium. - Avoid centrally acting medications #Diabetes - Reduce home glargine from 12 to 6 units qhs. cont SSI #H/o breast cancer s/p right mastectomy #DVT ppx: SCDs Disp: inpatient admission for PT/OT In-person medicine teacher present Subjective: making more sense per family Objective: Vital Signs Temp Pulse Resp BP Pulse Ox 36.7 C 66 16 179/94 H 92 12/21/18 07:44 12/21/18 07:44 12/21/18 07:44 12/21/18 07:44 12/21/18 07:44 Laboratory Results 12/20/18 04:33 12/20/18 12/21/18 12/22/18 05:59 05:59 05:59 Intake Total 800 Output Total 850 500 Balance -850 300 PT 12.3 SEC (12.0-15.0) 12/19/18 15:29 INR 0.95 (0.83-1.16) 12/19/18 15:29 - Time Spent With Patient Time Spent with Patient: greater than 35 minutes Time Spent with Patient: Greater than 35 minutes spent on this patients care, greater than 50% of time spent counseling, educating, and coordinating care regarding the above mentioned plan. - Physical Exam Constitutional: no apparent distress Eyes: PERRL Ears, Nose, Mouth, Throat: moist mucous membranes Cardiovascular: regular rate and rhythym Respiratory: no respiratory distress Gastrointestinal: normoactive bowel sounds Genitourinary: no bladder fullness Musculoskeletal: other (right BKA. Decreased strength LUE/LLE strength) Neurologic: CN II-XII Intact (left facial droop) Psychiatric: encephalopathic ICD10 Worksheet Patient Problems: Problems Problem Status Onset Acute ischemic stroke Acute Carotid stenosis, bilateral Acute Diabetes Acute
[2018-12-21] MEDS: amLODIPine BESYLATE 5 MG TAB PO SCH (10:47)
[2018-12-21] MEDS: ASPIRIN 81 MG CHEWABLE TAB PO SCH (10:47)
[2018-12-21] MEDS: ATORVASTATIN CALCIUM 40 MG TAB PO SCH (10:47)
[2018-12-21] MEDS ORDERED: BISACODYL 10 MG SUPP PR PRN (14:52)
[2018-12-21] MEDS ORDERED: LACTULOSE 20 GM/30 ML UDCUP PO PRN (14:52)
[2018-12-21] MEDS ORDERED: MAGNESIUM HYDROXIDE 30 ML UDCUP PO PRN (14:52)
--- NOTE | 2018-12-21 16:38 | ASMTCMCOM ---
CM Note CM Note Notes: Pt lives at home with family and is Nauruan speaking, admitted for CVA. Pt has no insurance but family has arranged for 24/ care with various family members. PT and OT are recommending inpatient rehab, however pt is uninsured and will be unable to pay out of pocket. Family prefers pt to return home and has requested written instructions from all therapists so that family members can guide patient through supportive therapy exercises. Family given loan closet list by PT. D/C likely Friday and return in 1 - 2 weeks for Carotid enarterectomy. CM to follow. D/C: Home with 24/7 support from family. Date Signed: 12/21/2018 04:38 PM Electronically Signed By:Ara Christnie
[2018-12-21] MEDS: SENNOSIDES/DOCUSATE SODIUM TAB PO SCH (22:26)
[2018-12-21] MEDS: INSULIN GLARGINE 100 UNITS/ML UNIT SC SCH (22:28)
[2018-12-22] MEDS: ATORVASTATIN CALCIUM 40 MG TAB PO SCH ×2 (09:26→11:21)
[2018-12-22] MEDS: SENNOSIDES/DOCUSATE SODIUM TAB PO SCH ×2 (09:26→11:20)
[2018-12-22] MEDS: POLYETHYLENE GLYCOL 3350 17 GM PKT PO PRN ×2 (09:27→11:20)
[2018-12-22] MEDS: amLODIPine BESYLATE 5 MG TAB PO SCH ×2 (09:27→11:19)
[2018-12-22] MEDS: ASPIRIN 81 MG CHEWABLE TAB PO SCH (11:19)
[2018-12-22] MEDS: ACETAMINOPHEN 325 MG TAB PO PRN (11:20)
[2018-12-22] MEDS: INSULIN LISPRO 100 UNIT/ML SC SCH ×3 (11:21→18:22)
[2018-12-22] MEDS ORDERED: amLODIPine BESYLATE 5 MG TAB PO ONE (11:55)
--- NOTE | 2018-12-22 13:07 | HOSPPROG ---
Hospitalist Progress Note Assessment/Plan: #Acute ischemic CVA: right-sided watershed and 2 cortical infarcts -no t-pA given; outside window. -CTA shows critical stenosis left ICA, 60% right ICA -Dr. Barriga evaluated -ASA, statin, PT/OT/SPL -inpatient rehab to eval, otherwise home with family 12/05 (no insurance) #HTN: BP improved with addition of Norvasc #Critical stenosis: Neuro recs medical stablization first, then surgery in 10- 14 days -99% left, 60% right #Acute metabolic encephalopathy: Related to stroke. At risk for delirium. - Avoid centrally acting medications #Diabetes - Reduce home glargine from 12 to 6 units qhs. cont SSI #H/o breast cancer s/p right mastectomy #DVT ppx: SCDs Disp: inpatient admission for PT/OT In-person water resource engineer present during visit. Family bedside and questions answered Subjective: "ate entire meal" Objective: Vital Signs Temp Pulse Resp BP Pulse Ox 36.8 C 74 19 137/65 H 92 12/22/18 12:00 12/22/18 12:00 12/22/18 12:00 12/22/18 12:00 12/22/18 12:00 Laboratory Results 12/20/18 04:33 12/21/18 12/22/18 12/23/18 05:59 05:59 05:59 Intake Total 800 100 Output Total 500 700 Balance 300 -600 PT 12.3 SEC (12.0-15.0) 12/19/18 15:29 INR 0.95 (0.83-1.16) 12/19/18 15:29 - Time Spent With Patient Time Spent with Patient: greater than 35 minutes Time Spent with Patient: Greater than 35 minutes spent on this patients care, greater than 50% of time spent counseling, educating, and coordinating care regarding the above mentioned plan. - Physical Exam Constitutional: no apparent distress Eyes: PERRL Ears, Nose, Mouth, Throat: moist mucous membranes Cardiovascular: regular rate and rhythym Respiratory: no respiratory distress Gastrointestinal: normoactive bowel sounds Genitourinary: No pruitt in urethra Musculoskeletal: other (lifts leg arm higher today. left leg still significantly weak) Neurologic: facial droop Psychiatric: encephalopathic ICD10 Worksheet Patient Problems: Problems Problem Status Onset Acute ischemic stroke Acute Carotid stenosis, bilateral Acute Diabetes Acute
--- NOTE | 2018-12-22 17:17 | ASMTCMCOM ---
CM Note CM Note Notes: Discussed case extensively with hospitalist and family. Hospitalist feels strongly pt will not do well without inpatient rehab and began discussion with [facility] rehab rn regarding accepting patient on pro bunny basis. Timing of rehab is still up in the air as patient will need endarterectomy in 1 - 2 weeks - cannot be earlier due to risk of second stroke. Pt currently having bouts of drowsiness per son which he is hoping will be rectified by endarterectomy as he is concerned drowsiness may limit pt's participation in rehab before the surgery. Of note pt intermittently sleeping sitting upright in straight backed chair when CM was in the room. Family prefers pt to discharge home with 24/7 support from family members, return for endarterectomy and then discharge to inpatient rehab at that time. Son is aware that pt's qualifying for inpatient rehab post surgery may change based on her recovery. To discharge home before surgery, therapies will need to educate family on how to transfer pt and do some temporary rehab as she is currently a 2 max assist. CM to follow. D/C Plan: TBD Date Signed: 12/22/2018 05:16 PM Electronically Signed By:Ara Christine
[2018-12-22] MEDS: INSULIN GLARGINE 100 UNITS/ML UNIT SC SCH (22:11)
[2018-12-23] MEDS: SENNOSIDES/DOCUSATE SODIUM TAB PO SCH ×2 (00:04→11:39)
--- NOTE | 2018-12-23 08:31 | SOAPPROG ---
SOAP Progress Note Assessment/Plan: Assessment:no new events. appears more confused today. afebrile. BP 150/70. more confused today - following commands - son at bedside. neuro with possible more left weakness? - exam difficult today. tongue midine. acute CVA. bilateral carotid stenosis L>>R (symptomatic right). recommend continued supportive care for now with ASA/BP mgmnt/lipid lowering therapy. PT/OT/ST. plan for bilateral CEA in the next 1-2 weeks - left then right - same visit barring any issues. plan re-reviewed with patient/son who express understanding and appreciation. son states probable home discharge. Plan: 12/20/18 07:09 12/21/18 08:21 12/21/18 08:22 12/23/18 08:31 12/23/18 08:32 Objective: Vital Signs Temp Pulse Resp BP Pulse Ox 36.1 C 76 20 154/76 H 90 L 12/23/18 07:45 12/23/18 07:45 12/23/18 07:45 12/23/18 07:45 12/23/18 07:45 Laboratory Results 12/20/18 04:33 12/22/18 12/23/18 12/24/18 05:59 05:59 05:59 Intake Total 100 Output Total 700 200 Balance -600 -200 PT 12.3 SEC (12.0-15.0) 12/19/18 15:29 INR 0.95 (0.83-1.16) 12/19/18 15:29 ICD10 Worksheet Patient Problems: Problems Problem Status Onset Acute ischemic stroke Acute Carotid stenosis, bilateral Acute Diabetes Acute
[2018-12-23] MEDS ORDERED: amLODIPine BESYLATE 5 MG TAB PO SCH (09:00)
[2018-12-23] MEDS: ASPIRIN 81 MG CHEWABLE TAB PO SCH (09:10)
[2018-12-23] MEDS: ATORVASTATIN CALCIUM 40 MG TAB PO SCH (09:11)
[2018-12-23] MEDS: INSULIN LISPRO 100 UNIT/ML SC SCH ×2 (09:12→14:57)
[2018-12-23 12:07] VITALS: BP 157/72
--- NOTE | 2018-12-23 14:01 | PDIAF ---
- Diagnosis Diagnosis: CVA Code Status: Full Code - Medication Management Discharge Medications: electronically signed and located in the Home Medication List. - Orders Services needed: Registered Nurse, Certified Wellness Coordinator, Physical Therapy, Occupational Therapy, Speech Language Pathologist Diet Recommendation: cardiac -low fat low salt Diet Texture: Dysphagia 1 - Pureed, Lesage Thick Liquids, Meds Crushed in Puree - Follow Up Care Current Providers and Referrals: Patient,NotPresent [Primary Care Provider] - Joey Barriga MD [Medical Doctor] -
--- NOTE | 2018-12-23 14:18 | ASMTLACE ---
LACE Length of stay for Answers: 4-6 days current admission Acuity / Level of Answers: Yes Care: Did the patient have an inpatient admission? Comorbidities - select Answers: Any tumor (including all that apply lymphoma or leukemia) Cerebrovascular disease (CVA, TIA, aneurysms, vasc ular dementia) Diabetes (uncontrolled or controlled) Other Notes: HTN # of Emergency department Answers: 1-2 visits in the last 6 months Score: 13 Date Signed: 12/23/2018 02:18 PM Electronically Signed By:DEACON Jones
--- NOTE | 2018-12-23 14:21 | ASMTDCNOTE ---
Case Management Discharge Discharge Order Complete? Answers: Yes Patient to Obtain Answers: Other Notes: [facility] Medications Transportation Arranged Answers: [facility] Case Management Transport Answers: Yes Form Complete Faxed Final Orders Answers: Yes Agency/Facility Transfer Answers: Yes Report Printed & Faxed to Receiving Agency Family Notified Answers: Yes Discharge Comments Notes: Pt was accepted at inpt rehab. Family is appreciative of plan to inpt rehab. CM scheduled transportation through [facility] to roll picker pt at 3pm. CM used [facility] to speak with family. No other CM needs identified at this time. Date Signed: 12/23/2018 02:20 PM Electronically Signed By:DEACON Jones
--- NOTE | 2018-12-23 20:48 | GDS ---
[f rep st] DISCHARGE SUMMARY DISCHARGE DIAGNOSES: 1. Acute ischemic cerebrovascular accident: Right-sided watershed and 2 cortical infarcts. Seconda ry to critical carotid stenosis. 2. Critical left internal carotid artery stenosis, 60% right internal carotid artery stenosis. 3. Hypertension. 4. Acute metabolic encephalopathy. 5. Diabetes. 6. History of breast cancer. 7. History of cerebrovascular accident. CONSULTATIONS: 1. Neurology. 2. Surgery. HPI: A pleasant 72-year-old Qatari-speaking female with hypertension, diabetes, history of CVA, bro ught to the ED by her children due to confusion and left facial droop. She was unable to provide inf ormation. She was normal going to bed at 9 p.m. the day prior to admission, slept until 11 the next day. Family notes she was confused, having difficulty putting on her right leg prosthesis. During l unch, they noted a left facial droop. HOSPITAL COURSE BY PROBLEM: 1. Acute ischemic CVA, right-sided watershed, cortical infarct. No tPA was given as was outside the window. CTA showed critical left ICA stenosis of 99%, 60% right ICA stenosis. Dr. Barriga evaluatedghanshyam for staged endarterectomy next week. Neurology was consulted. Echocardiogram showed PFO, but t here is not indication for closure, age greater than 60, and likely etiology being the stenosis. Con tinue aspirin, statin, blood pressure control. She has been accepted to inpatient rehab. Plan for s urgery next week. 2. Hypertension, improved with the addition of Norvasc. Continue lisinopril. 3. Acute metabolic encephalopathy, has improved. This is related to her stroke. Avoid central-acti ng medications. 4. Diabetes. Glargine 8 units sliding scale insulin. 5. History of breast cancer status post right mastectomy. DISPOSITION: Patient is stable for discharge to inpatient rehab. NEW MEDICATIONS: See medication reconciliation. FOLLOWUP: 1. Dr. Joey Barriga for endarterectomy. 2. Monitor blood pressure. Can increase Norvasc if needed. PHYSICAL EXAM: Today, done with a chief diversity officer: VITAL SIGNS: Temperature 36.1, blood pressur e is 157/72, heart rate in the 60s, respirations 18, 90% on room air, 100% on 2 L. GENERAL: Sitting up in chair. No acute distress. HEENT: PERRLA. Moist mucous membranes. CV: Regular rate and rh ythm. LUNGS: Clear. ABDOMEN: Soft, nontender, nondistended. Positive bowel sounds. : No Fole y. MUSCULOSKELETAL: 02/21 extremity strength on the right. Improved range of motion on th e left, upper extremity and leg. Facial droop still present. PSYCH: She is alert to city, state, n ot place. Time spent on discharge greater than 45 minutes coordinating with case management, discussing at beds myranda with family, surgical plan and followup. /[id number]/MODL
== END 2018-12-23 15:05 | DRG 64 ==
LOC: OBSVTOIN 17:34 → F3N 18:36
PROVIDERS: ADMIT Internal Medicine; ATTEND Internal Medicine
DX: I63.232 Cerebral infarction due to unspecified occlusion or stenosis of left carotid arteries (principal); I65.21 Occlusion and stenosis of right carotid artery; I10 Essential (primary) hypertension; G93.41 Metabolic encephalopathy; E11.9 Type 2 diabetes mellitus without complications; R29.810 Facial weakness; Z85.3 Personal history of malignant neoplasm of breast; Z90.11 Acquired absence of right breast and nipple; Z79.84 Long term (current) use of oral hypoglycemic drugs
CPT/HCPCS: 70551-PN; 82435-PO; 82565-PO; 82947-PO; 84132-PO; 84295-PO; 84484-ER; 84520-PO; 85014-ER; 92523-GN; 92526-GN; 92610-GN; 97112-GP; 97116-GP; 97163-GP; 97167-GO; 97530-GO; 97530-GP; 97535-GO; J1815; Q9967

== ENCOUNTER 2018-12-23 13:37 | Inpatient (IN) | payer SELFPAY ==
[2018-12-23] MEDS ORDERED: POLYETHYLENE GLYCOL 3350 17 GM PKT PO PRN (17:37)
[2018-12-23] MEDS ORDERED: ACETAMINOPHEN 325 MG TAB PO PRN (17:37)
[2018-12-23] MEDS ORDERED: D50W 25 GM/50 ML SYR IVP PRN (17:39)
--- NOTE | 2018-12-23 18:45 | PDOREHIP ---
Admission [facility] - Admission - 3 Day Assessment Period Admission Date/Day 1: 12/23/18 Day 2: 12/24/18 Day 3: 12/25/18 - Active Diagnoses Comorbidities and Co-existing Conditions at Admission: [address]. DM (e.g. diabetic retinopathy, nephropathy, and neuropathy) - Skin Conditions Unhealed Pressure Ulcer (1 or more/Stage 1 or >)-Admission: 0. No # Stage 1 Pressure Ulcers-Admission: 0 # Stage 2 Pressure Ulcers-Admission: 0 # Stage 3 Pressure Ulcers-Admission: 0 # Stage 4 Pressure Ulcers-Admission: 0 # Unstageable Pressure Ulcers (Non-remove Dress)-Admission: 0 # Unstageable Pressure Ulcers (Slough/Eschar)-Admission: 0 # Unstageable Pressure Ulcers (Deep Tissue Injury)-Admission: 0
--- NOTE | 2018-12-23 19:08 | GHP ---
[f rep st] HISTORY AND PHYSICAL POST ADMISSION PHYSICIAN EVALUATION AND REHABILITATION TREATMENT PLAN. DATE OF ADMISSION: 12/23/2018 TIME OF EVALUATION: 1745. REFERRING FACILITY: [facility]. IMPAIRMENT GROUP: 1.1. DATE OF ONSET: 11/2018. REFERRING PHYSICIAN: Dr. Zaidi. CONSULTING PHYSICIANS: Seen by surgeon Dr. Barriga and neurologist Dr. Sanchez. REHABILITATION DIAGNOSIS: Cerebrovascular accident with left-sided weakness. ETIOLOGIC DIAGNOSIS: Left body involvement (right brain) HISTORY OF PRESENT ILLNESS: This patient was admitted to [facility] on 12/19/2018 with confusion and left-sided weakness. There was also a left facial droop. Head CT showed multiple old lacunar strokes bilaterally in the basal ganglia, thalami, and left temporal and occipital lobes. CT angiogram of the head and neck showed critical stenosis of the left internal carotid artery which was 99% occluded. The right internal carotid artery was 60% occluded. Brain MRI showed multiple acute strokes in a watershed distribution in the right frontal parietal and occipital lobes. A left carotid endarterectomy is planned for 10-14 days after the stroke. HOSPITAL COURSE: Included addition of amlodipine for hypertension, initiation of atorvastatin for dyslipidemia and adjustment of insulin for diabetes mellitus. She had a metabolic encephalopathy. She was medically stabilized and appropriate for rehabilitation. Studies and labs during her stay included an echocardiogram which showed normal size left ventricle, normal global systolic left ventricular function with ejection fraction of 60%, no regional wall motion abnormalities, intracardiac shunting demonstrated with an agitated saline study, mild mitral valve regurgitation, and no pericardial effusion. Pulmonary artery pressure could not be obtained due to inadequate tricuspid jet. CBC was normal. Coagulation studies revealed normal PT and PTT. Serum chemistry revealed normal renal function and electrolytes. She had elevated glucoses and hemoglobin A1c of 8.3. Lipid panel showed elevated triglycerides at 163, LDL of 149, HDL of 34, which was low and a normal total cholesterol of 216. Urinalysis showed 2+ protein and 1+ glucose. PRECAUTIONS: She is a fall risk and she has aspiration precautions. ACTIVE COMORBIDITIES: She has the tier 2 comorbidity of dysphagia. She has the tier 3 comorbidity of hemiparesis and diabetes mellitus with manifestations. She otherwise has no active tier 1, tier 2 or tier 3 comorbidities. PAST MEDICAL HISTORY: 1. Diabetes mellitus type 2, on insulin. 2. Hypertension. 3. Prior CVA approximately 5 years ago. 4. Breast cancer. PAST SURGICAL HISTORY: She has had a left mastectomy and a right below-the- knee amputation. PRE-HOSPITAL MEDICATIONS: 1. Insulin detemir 12 units subcutaneous at bedtime. 2. Lisinopril 5 mg p.o. daily. ADMISSION MEDICATIONS: 1. Acetaminophen 600 mg p.o. q.4 hours p.r.n. 2. Amlodipine 5 mg p.o. daily. 3. Aspirin 81 mg p.o. daily. 4. Atorvastatin 40 mg p.o. daily. 5. Insulin glargine 8 units subcutaneous at bedtime. 6. Insulin lispro on a sliding scale. 7. Lisinopril 5 mg p.o. daily. 8. Polyethylene glycol 17 g p.o. daily p.r.n. 9. Senna/docusate 1-2 tablets p.o. twice daily. ALLERGIES: There are no known drug allergies. SOCIAL HISTORY: She is from [place] and living with her son. 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 She is nonsmoker and does not use alcohol. She is a [employer]. FAMILY HISTORY: Noncontributory. REVIEW OF SYSTEMS: She denies pain. She denies cough or dyspnea. She denies fevers or chills. She had constipation for several days, but then had a bowel movement. She denies urinary frequency, dysuria, nausea or vomiting. Otherwise , a 10-point review of systems is negative. PHYSICAL EXAM: VITAL SIGNS: Blood pressure is 137/72, heart rate is 82, respiratory rate is 16. Oxygen is 95% on room air. Temperature is 36.7 degrees centigrade. Her weight is 70.3 kg for a body mass index of 29.3. GENERAL: This is a well-nourished, well-developed woman, appears her chronologic age, lying in bed, wearing a hospital gown. Cooperative and in no acute distress. HEENT: Extraocular movements are intact. Pupils are equal, round, react to light. Mucous membranes are moist. Regarding dentition, she has full upper dentures. She has a non crowded airway, Mallampati class 1. NECK: Supple. HEART: There is a regular rate and rhythm with no murmurs, rubs , or gallops. LUNGS: Clear to auscultation bilaterally. ABDOMEN: Soft, nontender, nondistended with normoactive bowel sounds. EXTREMITIES: There is no cyanosis, clubbing, or edema. She has a lhhey-yym-kidn amputation on the right, which is old and fully healed. Dorsalis pedis pulse is 1+ on the left. NEUROLOGIC: She is alert. She is oriented to her self and general situation. She is not oriented to the date. Cranial nerves 2-12 are grossly intact, though she has an inability to maintain a labial seal and she has a left facial droop. Regarding motor strength, right upper extremity is 5/5; left upper extremity is 4/5 for hand network systems consultant, biceps and triceps; left lower extremity is 4/5 at hip flexors, hamstrings and quadriceps. Sensation is intact to light touch. Deep tendon reflexes are 2+ bilaterally at the left patella and left Achilles tendon. The right patellar reflex is difficult to ascertain due to her right rddai-tqj-abbk amputation. She is not cooperative with attempts to test pronator drift. SKIN: There is no rash and no skin breakdown. CURRENT LEVEL OF FUNCTION: Per the preadmission screen, she was on a dysphagia 1 pureed diet with nectar-thick liquids. Grooming required minimal assist with voice cues. Regarding dressing, her family assisted to don the right lower extremity prosthesis and bilateral shoes while seated at the edge of the bed. Lower body dressing required maximal assist. Toileting required minimal assist with voice cues for clothing management and moderate assist of 2 with voice cues for transfers. Bed mobility required moderate assist of 2 with voice cues. Transfers were done with moderate assist of 2 with voice cues. Seated balance required standby assist at the edge of the bed and standing balance required moderate assist of 2. Endurance was fair. She ambulated 5 feet with a front-wheeled walker and right prosthesis, and maximal assist of 2. Regarding communication, she was noted to have jbjs-uk-upohflko impairment and moderate dysarthria. Regarding cognition, she was noted to have mild-to- moderate impairment in attention and judgment/safety. She also was observed to have left neglect. On today's exam, there are no significant changes from the preadmission screen. IMPRESSION: This is a 72-year-old woman with history of diabetes mellitus, most likely type 2, treated with insulin, and a prior history of a cerebrovascular accident who suffered a stroke and has been diagnosed with critical left internal carotid artery stenosis of 99%, as well as right internal carotid artery stenosis of 60%. Stroke was multifocal on the right side of the brain, with CT imaging showing old strokes also on the left side of the brain. She has left hemiplegia, left blas-neglect and dysarthria. Echocardiogram showed an intracardiac shunt. She was treated with aspirin, improved blood pressure control with addition of amlodipine to lisinopril, and initiation of atorvastatin for lipid control. She was outside of the window for thrombolysis. She was noted to have an acute metabolic encephalopathy. She had adjustment of her insulin for her diabetes. She was otherwise stable and appropriate for inpatient rehab. Her goal is to complete a rehabilitation stay and then return home with her family and home health care services. For a safe discharge, she will need to advance to fgtzceh-zz-foyqnbft assist for bed mobility, grooming, bathing, and transfers with appropriate equipment. It is expected she will continue to require maximal assist for dressing. She will need to be on the least restrictive diet. She likely will use a wheelchair for mobility. She will likely require 24-hour assistance. There will need to be family education. She will have therapy with physical therapy, occupational therapy, and speech and language pathology on a modified schedule for 30-60 minutes each day for each discipline on 5-7 days of the week to total 15 hours a week or more. Her expected duration of stay is 5-7 days. It is anticipated that upon discharge she will require home health services including nursing, speech and language pathology, occupational therapy and physical therapy. Additionally, she will benefit from stroke support group. PLAN: 1. Multifocal cerebrovascular accident with left hemiparesis and left hemineglect. PT and OT to optimize mobility and activities of daily living. 2. Dysarthria and dysphagia. Continue dysphagia 1 diet and nectar thick liquids. Evaluation and treatment per Speech and Language Pathology. 3. Possible cognitive impairment with metabolic encephalopathy in the hospital. Assessment per Speech and Language Pathology. 4. Secondary prevention of cerebrovascular accident. Continue glycemic control , blood pressure control and lipid control. Continue aspirin. Will initiate fluoxetine for neuro recovery following hemiplegic stroke starting at a low dose of 10 mg daily. If this is tolerated, we will increase to 20 mg daily. 5. Critical internal carotid artery stenosis. She will be scheduled for a carotid endarterectomy following her discharge from rehabilitation, approximately 10-15 days after the stroke. 6. Diabetes mellitus type 2. Continue insulin glargine at 8 units at bedtime as well as three times daily insulin lispro sliding scale. 7. History of whuaq-enh-zezi amputation. She has a prosthesis. She will work with physical and occupational therapy regarding mobilitywith the prosthesis. 8. Prophylaxis. Unclear why she has not been on pharmacologic prophylaxis in the hospital. We will continue SCDs. Will discuss with Neurology regarding whether the size of the infarcts preclude anticoagulation due to risk of intracranial hemorrhage. Continue aspirin and mobilize as much as possible. 9. Followup. She will see Dr. Barriga, surgery, for a carotid endarterectomy in 10 -14 days from 12/20/2018, which would be 12/30-01/03/2019. /[id number]/MODL MTDD
[2018-12-23] MEDS: INSULIN LISPRO 100 UNIT/ML SC SCH (19:22)
[2018-12-23] MEDS: SENNOSIDES/DOCUSATE SODIUM TAB PO SCH (20:08)
[2018-12-23] MEDS ORDERED: INSULIN GLARGINE 100 UNITS/ML UNIT SC SCH (21:00)
[2018-12-24] MEDS ORDERED: Herbals/Supplements -Info Only PO SCH (09:00)
[2018-12-24] MEDS: LISINOPRIL 5 MG TAB PO SCH (09:06)
[2018-12-24] MEDS: ATORVASTATIN CALCIUM 40 MG TAB PO SCH (09:07)
[2018-12-24] MEDS: FLUOXETINE 4 MG/ML 30 ML BOTTLE PO SCH (09:07)
[2018-12-24] MEDS: amLODIPine BESYLATE 5 MG TAB PO SCH (09:07)
[2018-12-24] MEDS: ASPIRIN 81 MG CHEWABLE TAB PO SCH (09:07)
[2018-12-24] MEDS: SENNOSIDES/DOCUSATE SODIUM TAB PO SCH ×2 (09:08→20:14)
[2018-12-24] MEDS: INSULIN LISPRO 100 UNIT/ML SC SCH ×3 (09:12→18:10)
--- NOTE | 2018-12-24 12:08 | SOAPPROG ---
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 * Has significant mobility deficit and is unlikely to be, a functional ambulator. Goal to reduce burden of care and achieve transfers with assist of 1. * Continue PT and OT to optimize mobility and activities of daily living. Dysarthria and dysphagia. Continue dysphagia 1 diet and nectar thick liquids. * Per FLOOR PERSON, she is symptomatic on nectar thick as well as honey thick liquids, with coughing and possible inadequate clearing. Would probably be a poor candidate for feeding tube given age and comorbidities. Continue efforts of FLOOR PERSON and consider VFSS after several more days per Cognitive impairment with metabolic encephalopathy in the hospital. Assessment per Speech and Language Pathology. Secondary prevention of cerebrovascular accident. Continue glycemic control, blood pressure control and lipid control. Continue aspirin. Will initiate fluoxetine for neuro recovery following hemiplegic stroke starting at a low dose of 10 mg daily. If this is tolerated, we will increase to 20 mg daily. Critical internal carotid artery stenosis. She will be scheduled for a carotid endarterectomy following her discharge from rehabilitation, approximately 10-15 days after the stroke. Diabetes mellitus type 2. Continue insulin glargine at 8 units at bedtime as well as insulin lispro sliding scale. History of bnveq-qex-vftj amputation. She has a prosthesis. She will work with physical and occupational therapy regarding mobility with the prosthesis. Prophylaxis. Unclear why she has not been on pharmacologic prophylaxis in the hospital. We will continue SCDs. Will discuss with Neurology regarding whether the size of the infarcts preclude anticoagulation due to risk of intracranial hemorrhage. Continue aspirin and mobilize as much as possible. Followup. She will see Dr. Barriga, surgery, for a carotid endarterectomy in 10-14 days from 12/20/2018, which would be 12/30-01/03/2019. 12/24/18 13:52 Subjective: No complaints. Slept well. Not in pain. Objective: Vital Signs Temp Pulse Resp BP Pulse Ox 36.3 C 76 15 159/79 H 96 12/24/18 06:49 12/24/18 09:04 12/24/18 06:49 12/24/18 09:07 12/24/18 06:49 12/23/18 12/24/18 12/25/18 05:59 05:59 05:59 Intake Total 118 Balance 118 Physical Exam - Physical Exam General Appearance: WD/WN, alert, no apparent distress Respiratory: normal breath sounds, No crackles, No rhonchi, No wheezing Cardiac/Chest: regular rate, rhythm, No diastolic murmur, No systolic murmur Skin: normal color, warm/dry Neuro/Psych: alert, normal mood/affect, facial droop (Left), motor weakness ( Left upper and lower extremities) ICD10 Worksheet Patient Problems: Problems Problem Status Onset Acute ischemic stroke Acute Carotid stenosis, bilateral Acute Diabetes Acute
[2018-12-24] MEDS ORDERED: INSULIN GLARGINE 100 UNITS/ML UNIT SC SCH (21:00)
[2018-12-25] MEDS: INSULIN LISPRO 100 UNIT/ML SC SCH ×3 (08:24→17:27)
[2018-12-25] MEDS: SENNOSIDES/DOCUSATE SODIUM TAB PO SCH ×2 (08:25→19:46)
[2018-12-25] MEDS: ASPIRIN 81 MG CHEWABLE TAB PO SCH (08:25)
[2018-12-25] MEDS: LISINOPRIL 5 MG TAB PO SCH (08:25)
[2018-12-25] MEDS: ATORVASTATIN CALCIUM 40 MG TAB PO SCH (08:25)
[2018-12-25] MEDS: amLODIPine BESYLATE 5 MG TAB PO SCH (08:26)
[2018-12-25] MEDS: FLUOXETINE 4 MG/ML 30 ML BOTTLE PO SCH (08:28)
--- NOTE | 2018-12-25 12:21 | SOAPPROG ---
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 * Initial functional independence measure is 32 on 12/25/2018. Has increased tone left lower extremity and has scissoring when she stands. Maximal to total assist for transfers. Maximal assist to take a few steps. Does grooming and hygiene with minimal assist. Upper body and lower body dressing required maximal assist. She requires total assist for toileting. She is incontinent of urine. She has left neglect and she pushes to the left. She has apraxia. * She is unlikely to be a functional ambulator. Goal to reduce burden of care and achieve transfers with assist of 1. * Continue PT and OT to optimize mobility and activities of daily living. Dysarthria and dysphagia. Continue dysphagia 1 diet. * Per COMMUNITY RELATIONS COORDINATOR, she is symptomatic on nectar thick liquids, with coughing and possible inadequate clearing. Has been downgraded to honey thick liquids. * Continue efforts of COMMUNITY RELATIONS COORDINATOR and consider VFSS after several more days per Cognitive impairment with metabolic encephalopathy in the hospital. Treatment per Speech and Language Pathology. * Illiterate and Turkish-speaking only, limits formal cognitive assessment. Secondary prevention of cerebrovascular accident. Continue glycemic control, blood pressure control and lipid control. Continue aspirin. * Initiated fluoxetine 12/24/2018 for neuro recovery following hemiplegic stroke starting at a low dose of 10 mg daily. If this is tolerated, will increase to 20 mg daily. Critical internal carotid artery stenosis. She will be scheduled for a carotid endarterectomy following her discharge from rehabilitation, approximately 10-15 days after the stroke. Diabetes mellitus type 2. Continue insulin glargine at 8 units at bedtime as well as insulin lispro sliding scale. History of fgupn-unn-frnm amputation. She has a prosthesis. She will work with physical and occupational therapy regarding mobility with the prosthesis. Prophylaxis. Discussed with Neurology, Dr. Sanchez, 12/25/2018. No contraindication to anticoagulation for DVT prophylaxis. Will initiate enoxaparin 40 mg subcutaneous q.day starting 12/25/2018. Goals of care. Discussed resuscitation wishes with patient and son via Turkish languages and literature instructor, 12/25/2018. Patient understood cardiac arrest and end of life if no intervention. Patient understood low likelihood of successful outcome of attempted resuscitation including possibility of further neurologic damage. Patient chose full cardiac resuscitation. Discussed role of medical pgplq-bt-jvrcqala with son, including ability to make decisions for patient if she is not decisional. He indicated that he is serving as medical power of divorce attorney. Discussed with foster care case manager, who will assist son and patient in preparing medical power of divorce attorney documentation. DISPOSITION: Attended staffing, 15 min. Discussed with case management, dietitian, nursing, PT, OT, COMMUNITY RELATIONS COORDINATOR. Plans to return home with son, who will be with her 24 hr a day. Goal is to reduce burden of care. Discharge date set set for 12/30/2018. Followup. She will see Dr. Barriga, surgery, for a carotid endarterectomy in 10-14 days from 12/20/2018, which would be 12/30-01/03/2019. 12/25/18 12:34 Subjective: No complaints. Slept well. Not in pain, no cough or dyspnea, no fevers or chills. Objective: Vital Signs Temp Pulse Resp BP Pulse Ox 37.2 C 78 15 146/82 H 93 12/25/18 07:47 12/25/18 07:47 12/25/18 07:47 12/25/18 08:26 12/25/18 07:47 12/24/18 12/25/18 12/26/18 05:59 05:59 05:59 Intake Total 118 806 Output Total 300 Balance 118 506 - Time Spent With Patient Time Spent With Patient: Greater than 35 min floor time today, including more than 50% of time in coordination of care during staffing meeting, and counseling patient and son, including goals of care discussion. Physical Exam - Physical Exam General Appearance: WD/WN, alert, no apparent distress Respiratory: normal breath sounds, crackles (Right lower lobe), No rhonchi, No wheezing Cardiac/Chest: regular rate, rhythm, No edema, No diastolic murmur, No systolic murmur Skin: normal color, warm/dry Neuro/Psych: alert, normal mood/affect, facial droop (Left), motor weakness ( Left upper and lower extremities) ICD10 Worksheet Patient Problems: Problems Problem Status Onset Acute ischemic stroke Acute Carotid stenosis, bilateral Acute Diabetes Acute
[2018-12-26] MEDS: INSULIN LISPRO 100 UNIT/ML SC SCH ×3 (08:20→17:29)
[2018-12-26] MEDS: ATORVASTATIN CALCIUM 40 MG TAB PO SCH (08:20)
[2018-12-26] MEDS: LISINOPRIL 5 MG TAB PO SCH (08:20)
[2018-12-26] MEDS: ASPIRIN 81 MG CHEWABLE TAB PO SCH (08:21)
[2018-12-26] MEDS: FLUOXETINE 4 MG/ML 30 ML BOTTLE PO SCH (08:21)
[2018-12-26] MEDS: amLODIPine BESYLATE 5 MG TAB PO SCH (08:21)
[2018-12-26] MEDS: SENNOSIDES/DOCUSATE SODIUM TAB PO SCH ×2 (08:21→22:04)
--- NOTE | 2018-12-26 09:46 | SOAPPROG ---
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 * Initial functional independence measure is 32 on 12/25/2018. Has increased tone left lower extremity and has scissoring when she stands. Maximal to total assist for transfers. Maximal assist to take a few steps. Does grooming and hygiene with minimal assist. Upper body and lower body dressing required maximal assist. She requires total assist for toileting. She is incontinent of urine. She has left neglect and she pushes to the left. She has apraxia. * She is unlikely to be a functional ambulator. Goal to reduce burden of care and achieve transfers with assist of 1. * Continue PT and OT to optimize mobility and activities of daily living. Dysarthria and dysphagia. Continue dysphagia 1 diet. * Per SCHOOL SPEECH THERAPIST, she is symptomatic on nectar thick liquids, with coughing and possible inadequate clearing. Has been downgraded to honey thick liquids. * Continue efforts of SCHOOL SPEECH THERAPIST and consider VFSS after several more days per Cognitive impairment with metabolic encephalopathy in the hospital. Treatment per Speech and Language Pathology. * Illiterate and Citizen [place]-speaking only, limits formal cognitive assessment. Secondary prevention of cerebrovascular accident. Continue glycemic control, blood pressure control and lipid control. BLOOD PRESSURE 12/26/2018 157/81. MOST LIKELY WILL NOT ADJUST BLOOD PRESSURE MEDICATION SECONDARY TO RECENT ISCHEMIC CVA. Continue aspirin. * Initiated fluoxetine 12/24/2018 for neuro recovery following hemiplegic stroke starting at a low dose of 10 mg daily. If this is tolerated, will increase to 20 mg daily. Critical internal carotid artery stenosis. She will be scheduled for a carotid endarterectomy following her discharge from rehabilitation, approximately 10-15 days after the stroke. Diabetes mellitus type 2. Continue insulin glargine at 8 units at bedtime as well as insulin lispro sliding scale. Blood glucose level 12/26/18 180 History of [id number]-[id number] amputation. She has a prosthesis. She will work with physical and occupational therapy regarding mobility with the prosthesis. Prophylaxis. Discussed with Neurology, Dr. Sanchez, 12/25/2018. No contraindication to anticoagulation for DVT prophylaxis. Will initiate enoxaparin 40 mg subcutaneous q.day starting 12/25/2018. Goals of care. Discussed resuscitation wishes with patient and son via Citizen Of [place] international marketing coordinator, 12/25/2018. Patient understood cardiac arrest and end of life if no intervention. Patient understood low likelihood of successful outcome of attempted resuscitation including possibility of further neurologic damage. Patient chose full cardiac resuscitation. Discussed role of medical slojo-nm-nqrclyeu with son, including ability to make decisions for patient if she is not decisional. He indicated that he is serving as medical power of commonwealth attorney. Discussed with case coordinator, who will assist son and patient in preparing medical power of commonwealth attorney documentation. DISPOSITION: Attended staffing, 15 min. Discussed with case management, dietitian, nursing, PT, OT, SCHOOL SPEECH THERAPIST. Plans to return home with son, who will be with her 24 hr a day. Goal is to reduce burden of care. Discharge date set set for 12/30/2018. Followup. She will see Dr. Barriga, surgery, for a carotid endarterectomy in 10-14 days from 12/20/2018, which would be 12/30-01/03/2019. Plan: 12/26/18 09:50 Subjective: Her son was present during rounds and served as park interpreter. Patient relates no specific complaints. Denies headache, chest pain or shortness of breath. Denies right residual limb pain. Nursing reports she was incontinent for a large amount of urine last p.m.. According to nursing, bladder scan last night showed 500 cc, patient was toileted and voided 275 cc and subsequently cathed for 500 cc. Nursing staff this morning feels that bladder scanned last p.m. Most likely inaccurate. Objective: Vital Signs Temp Pulse Resp BP Pulse Ox 36.8 C 73 16 157/81 H 92 12/26/18 06:16 12/26/18 06:16 12/26/18 06:16 12/26/18 06:16 12/26/18 06:16 12/25/18 12/26/18 12/27/18 05:59 05:59 06:59 Intake Total 806 930 240 Output Total 300 775 Balance 506 930 -535 Physical Exam - Physical Exam General Appearance: WD/WN, alert, no apparent distress Respiratory: lungs clear, normal breath sounds Cardiac/Chest: No edema Abdomen: normal bowel sounds, non-tender, soft Skin: other (Right BKA residual limb exam deferred due to patient's starting physical therapy session during rounds this morning.) Extremities: other (Right below-knee amputation prosthesis in place and fitting well.), No swelling, No Jose's sign Neuro/Psych: motor weakness (Left upper and left lower extremity weakness.), cognition abnormalities, speech abnormalities ICD10 Worksheet Patient Problems: Problems Problem Status Onset Acute ischemic stroke Acute Carotid stenosis, bilateral Acute Diabetes Acute
[2018-12-27] MEDS: INSULIN LISPRO 100 UNIT/ML SC SCH ×3 (08:22→17:12)
[2018-12-27] MEDS: LISINOPRIL 5 MG TAB PO SCH (08:26)
[2018-12-27] MEDS: amLODIPine BESYLATE 5 MG TAB PO SCH (08:26)
[2018-12-27] MEDS: ATORVASTATIN CALCIUM 40 MG TAB PO SCH (08:28)
[2018-12-27] MEDS: ASPIRIN 81 MG CHEWABLE TAB PO SCH (08:28)
[2018-12-27] MEDS: SENNOSIDES/DOCUSATE SODIUM TAB PO SCH ×2 (08:37→21:23)
[2018-12-27] MEDS: FLUOXETINE 4 MG/ML 30 ML BOTTLE PO SCH (08:42)
--- NOTE | 2018-12-27 09:27 | SOAPPROG ---
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 * Initial functional independence measure is 32 on 12/25/2018. Has increased tone left lower extremity and has scissoring when she stands. Maximal to total assist for transfers. Maximal assist to take a few steps. Does grooming and hygiene with minimal assist. Upper body and lower body dressing required maximal assist. She requires total assist for toileting. She is incontinent of urine. She has left neglect and she pushes to the left. She has apraxia. * She is unlikely to be a functional ambulator. Goal to reduce burden of care and achieve transfers with assist of 1. * Continue PT and OT to optimize mobility and activities of daily living. Dysarthria and dysphagia. Continue dysphagia 1 diet. * Per SENIOR SOFTWARE DEVELOPER, she is symptomatic on nectar thick liquids, with coughing and possible inadequate clearing. Has been downgraded to honey thick liquids. * Continue efforts of SENIOR SOFTWARE DEVELOPER and consider VFSS after several more days per Cognitive impairment with metabolic encephalopathy in the hospital. Treatment per Speech and Language Pathology. * Illiterate and Citizen [place]-speaking only, limits formal cognitive assessment. Secondary prevention of cerebrovascular accident. Continue glycemic control, blood pressure control and lipid control. Blood pressure 3/10 a.m. 147/89. Will not increase dosage of antihypertensives since brain perfusion is an issue following ischemic CVA. Continue aspirin. * Initiated fluoxetine 12/24/2018 for neuro recovery following hemiplegic stroke starting at a low dose of 10 mg daily. If this is tolerated, will increase to 20 mg daily. Critical internal carotid artery stenosis. She will be scheduled for a carotid endarterectomy following her discharge from rehabilitation, approximately 10-15 days after the stroke. Diabetes mellitus type 2. Continue insulin glargine at 8 units at bedtime as well as insulin lispro sliding scale. Blood glucose level 3/10 a.m. 146. History of vhovv-zso-idqq amputation. Denies right residual limb pain. She has a prosthesis. She will work with physical and occupational therapy regarding mobility with the prosthesis. Prophylaxis. Discussed with Neurology, Dr. Sanchez, 12/25/2018. No contraindication to anticoagulation for DVT prophylaxis. Will initiate enoxaparin 40 mg subcutaneous q.day starting 12/25/2018. Goals of care. Discussed resuscitation wishes with patient and son via Citizen [place] speech language pathologist, 12/25/2018. Patient understood cardiac arrest and end of life if no intervention. Patient understood low likelihood of successful outcome of attempted resuscitation including possibility of further neurologic damage. Patient chose full cardiac resuscitation. Discussed role of medical fprqk-lr-rrlsyhye with son, including ability to make decisions for patient if she is not decisional. He indicated that he is serving as medical power of business attorney. Discussed with human services case manager, who will assist son and patient in preparing medical power of business attorney documentation. Followup. She will see Dr. Barriga, surgery, for a carotid endarterectomy in 10-14 days from 12/20/2018, which would be 12/30-01/03/2019. 12/27/18 09:30 Subjective: HIS SON WAS PRESENT TODAY DURING ROUNDS AND SERVED MOVING PICTURE PRODUCER. No complaints of headache. Denies shortness of breath or chest pain. Denies left shoulder pain. Denies dysesthetic pain in left upper or left lower extremity. Denies right residual limb pain. Denies suprapubic pain or dysuria Objective: Vital Signs Temp Pulse Resp BP Pulse Ox 36.7 C 74 15 147/89 H 96 12/27/18 05:53 12/27/18 05:53 12/27/18 05:53 12/27/18 08:26 12/27/18 05:53 12/26/18 12/27/18 12/28/18 04:59 05:59 05:59 Intake Total Output Total Balance Physical Exam - Physical Exam General Appearance: WD/WN, alert, no apparent distress Respiratory: lungs clear, normal breath sounds Cardiac/Chest: No regular rate, rhythm, No edema Abdomen: normal bowel sounds, non-tender, soft Extremities: normal range of motion (Decreased passive range of motion left glenohumeral joint), No swelling, No Jose's sign Neuro/Psych: motor weakness (Left hemiparesis), speech abnormalities ( Dysarthric.) ICD10 Worksheet Patient Problems: Problems Problem Status Onset Acute ischemic stroke Acute Carotid stenosis, bilateral Acute Diabetes Acute
[2018-12-28] MEDS: INSULIN LISPRO 100 UNIT/ML SC SCH ×3 (08:19→18:28)
[2018-12-28] MEDS: LISINOPRIL 5 MG TAB PO SCH (08:37)
[2018-12-28] MEDS: ATORVASTATIN CALCIUM 40 MG TAB PO SCH (08:37)
[2018-12-28] MEDS: SENNOSIDES/DOCUSATE SODIUM TAB PO SCH ×2 (08:38→21:07)
[2018-12-28] MEDS: amLODIPine BESYLATE 5 MG TAB PO SCH (08:38)
[2018-12-28] MEDS: ASPIRIN 81 MG CHEWABLE TAB PO SCH (08:38)
[2018-12-28] MEDS ORDERED: LISINOPRIL 20 MG TAB PO SCH (10:30)
[2018-12-28] MEDS ORDERED: LISINOPRIL 10 MG TAB PO ONE (10:45)
--- NOTE | 2018-12-28 11:17 | SOAPPROG ---
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 * Initial functional independence measure is 32 on 12/25/2018. Has increased tone left lower extremity and has scissoring when she stands. Maximal to total assist for transfers. Maximal assist to take a few steps. Does grooming and hygiene with minimal assist. Upper body and lower body dressing required maximal assist. She requires total assist for toileting. She is incontinent of urine. She has left neglect and she pushes to the left. She has apraxia. * She is unlikely to be a functional ambulator. Goal to reduce burden of care and achieve transfers with assist of 1. * Continue PT and OT to optimize mobility and activities of daily living. Dysarthria and dysphagia. Continue dysphagia 1 diet. * Per GROUP DIRECTOR EXPERIENCE, she is symptomatic on nectar thick liquids, with coughing and possible inadequate clearing. Has been downgraded to honey thick liquids. * Continue efforts of GROUP DIRECTOR EXPERIENCE and consider VFSS after several more days per Cognitive impairment with metabolic encephalopathy in the hospital. Treatment per Speech and Language Pathology. * Illiterate and Egyptian-speaking only, limits formal cognitive assessment. Secondary prevention of cerebrovascular accident. Continue glycemic control, blood pressure control and lipid control. Continue aspirin. * Initiated fluoxetine 12/24/2018 for neuro recovery following hemiplegic stroke starting at a low dose of 10 mg daily. If this is tolerated, will increase to 20 mg daily. Critical internal carotid artery stenosis. She will be scheduled for a carotid endarterectomy following her discharge from rehabilitation, approximately 10-15 days after the stroke. Diabetes mellitus type 2. Insulin glargine at 8 units at bedtime was inadvertently canceled after 12/23/2018. Will restart 12/28/2018. Continue insulin lispro per sliding scale.. History of nszai-xog-ahir amputation. She has a prosthesis. She will work with physical and occupational therapy regarding mobility with the prosthesis. Urinary retention. Discussed with patient and son as paraprofessional interpreter, 12/28/2018. Unclear as to prior history. There is an association between amlodipine and urinary retention. Will discontinue amlodipine, and increase lisinopril from 5 mg to 20 mg q.day, starting 12/29/2018. Continue bladder scans but increased threshold for catheterization to 500 cc. Prophylaxis. Discussed with Neurology, Dr. Sanchez, 12/25/2018. No contraindication to anticoagulation for DVT prophylaxis. Will initiate enoxaparin 40 mg subcutaneous q.day starting 12/25/2018. Goals of care. Discussed resuscitation wishes with patient and son via [place] sign language translator, 12/25/2018. Patient understood cardiac arrest and end of life if no intervention. Patient understood low likelihood of successful outcome of attempted resuscitation including possibility of further neurologic damage. Patient chose full cardiac resuscitation. Discussed role of medical rqohc-hv-ffkkyynd with son, including ability to make decisions for patient if she is not decisional. He indicated that he is serving as medical power of attorney general. Discussed with major case detective, who will assist son and patient in preparing medical power of attorney general documentation. DISPOSITION: Plans to return home with son, who will be with her 24 hr a day. Goal is to reduce burden of care. Discharge date set set for 12/30/2018. Followup. She will see Dr. Barriga, surgery, for a carotid endarterectomy in 10-14 days from 12/20/2018, which would be 12/30-01/03/2019. Decision to proceed will depend on further discussion of risks and benefits. 12/28/18 11:10 Subjective: No complaints. Sleeping well. Not in pain. No fevers or chills. Objective: Vital Signs Temp Pulse Resp BP Pulse Ox 37.1 C 85 18 135/80 H 93 12/27/18 20:00 12/27/18 20:00 12/27/18 20:00 12/28/18 08:38 12/27/18 20:00 12/27/18 12/28/18 12/29/18 05:59 05:59 05:59 Intake Total 640 Output Total 1350 Balance -710 Physical Exam - Physical Exam General Appearance: WD/WN, alert, no apparent distress Respiratory: normal breath sounds, No crackles, No rhonchi, No wheezing Cardiac/Chest: regular rate, rhythm, No diastolic murmur, No systolic murmur Skin: normal color, warm/dry Neuro/Psych: alert, normal mood/affect, oriented x 3, motor weakness (Left upper and lower extremities) ICD10 Worksheet Patient Problems: Problems Problem Status Onset Acute ischemic stroke Acute Carotid stenosis, bilateral Acute Diabetes Acute
[2018-12-28] MEDS: FLUOXETINE 4 MG/ML 30 ML BOTTLE PO SCH (12:28)
[2018-12-28] MEDS: INSULIN GLARGINE 100 UNITS/ML UNIT SC SCH (20:57)
[2018-12-29] MEDS: SENNOSIDES/DOCUSATE SODIUM TAB PO SCH ×2 (08:15→20:23)
[2018-12-29] MEDS: INSULIN LISPRO 100 UNIT/ML SC SCH ×3 (08:15→16:52)
[2018-12-29] MEDS: FLUOXETINE 4 MG/ML 30 ML BOTTLE PO SCH (08:17)
[2018-12-29] MEDS: ATORVASTATIN CALCIUM 40 MG TAB PO SCH (08:17)
[2018-12-29] MEDS: ASPIRIN 81 MG CHEWABLE TAB PO SCH (08:17)
[2018-12-29] MEDS: LISINOPRIL 20 MG TAB PO SCH (08:17)
--- NOTE | 2018-12-29 13:37 | SOAPPROG ---
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 * Initial functional independence measure is 32 on 12/25/2018. Has increased tone left lower extremity and has scissoring when she stands. Maximal to total assist for transfers. Maximal assist to take a few steps. Does grooming and hygiene with minimal assist. Upper body and lower body dressing required maximal assist. She requires total assist for toileting. She is incontinent of urine. She has left neglect and she pushes to the left. She has apraxia. * She is unlikely to be a functional ambulator. Goal to reduce burden of care. * Accomplished a car transfer on 12/28/2018. Continues to require assist of 2 for transfers. * Continue PT and OT to optimize mobility and activities of daily living. Dysarthria and dysphagia. Continue dysphagia 1 diet. * Per PATIENT FINANCIAL SPECIALIST, she is symptomatic on nectar thick liquids, with coughing and possible inadequate clearing. Has been downgraded to honey thick liquids. * Continue efforts of PATIENT FINANCIAL SPECIALIST and consider VFSS after several more days per Cognitive impairment with metabolic encephalopathy in the hospital. Treatment per Speech and Language Pathology. * Illiterate and [place]-speaking only, limits formal cognitive assessment. Secondary prevention of cerebrovascular accident. Continue glycemic control, blood pressure control and lipid control. Continue aspirin. * Initiated fluoxetine 12/24/2018 for neuro recovery following hemiplegic stroke starting at a low dose of 10 mg daily. If this is tolerated, will increase to 20 mg daily. Critical internal carotid artery stenosis. * With age diabetes and poor functional status requiring assistance for most mobility related tasks and ADLs, she is at a high risk for surgery with risk for severe complications greater than 17%. Surgery on the right internal carotid would reduce her subsequent risk of stroke by about 6.5%. * Discussed with Surgeon Dr. Barriga, 12/28/2018. Plan is for clinic visit with Dr. Barriga within a week of discharge and decision at that point regarding whether to proceed with surgery Diabetes mellitus type 2. Insulin glargine at 8 units at bedtime was inadvertently canceled after 12/23/2018. Restarted 12/28/2018. Continue insulin lispro per sliding scale.. History of eujmg-xwh-fxsy amputation. She has a prosthesis. She will work with physical and occupational therapy regarding mobility with the prosthesis. Urinary retention. Discussed with patient and son as parts interpreter, 12/28/2018. Unclear as to prior history. There is an association between amlodipine and urinary retention. Will discontinue amlodipine, and increase lisinopril from 5 mg to 20 mg q.day, starting 12/29/2018. Continue bladder scans but increased threshold for catheterization to 500 cc. Prophylaxis. Discussed with Neurology, Dr. Sanchez, 12/25/2018. No contraindication to anticoagulation for DVT prophylaxis. Will initiate enoxaparin 40 mg subcutaneous q.day starting 12/25/2018. Goals of care. Discussed resuscitation wishes with patient and son via Sudanese track repairer, 12/25/2018. Patient understood cardiac arrest and end of life if no intervention. Patient understood low likelihood of successful outcome of attempted resuscitation including possibility of further neurologic damage. Patient chose full cardiac resuscitation. Discussed role of medical upvlj-vo-sjibwejs with son, including ability to make decisions for patient if she is not decisional. He indicated that he is serving as medical power of senior project manager. Discussed with case sealer, who will assist son and patient in preparing medical power of senior project manager documentation. DISPOSITION: Plans to return home with son and family, who will be with her 24 hr a day. Goal is to reduce burden of care. Discharge date set set for 2018. Followup. She will see Dr. Barriga approximately 1 week after discharge. Decision to proceed will depend on further discussion of risks and benefits. 12/29/18 13:31 Subjective: No complaints. Not in pain. No cough or dyspnea. Slept well. Objective: Vital Signs Temp Pulse Resp BP Pulse Ox 36.6 C 77 15 163/91 H 94 12/29/18 05:12 12/29/18 05:12 12/29/18 05:12 12/29/18 05:12 12/29/18 08:00 12/28/18 12/29/18 12/30/18 05:59 05:59 05:59 Intake Total 640 700 120 Output Total 1350 500 275 Balance -710 200 -155 Physical Exam - Physical Exam General Appearance: WD/WN, alert, no apparent distress Respiratory: normal breath sounds, No crackles, No rhonchi, No wheezing Cardiac/Chest: regular rate, rhythm, No diastolic murmur, No systolic murmur Skin: normal color, warm/dry Neuro/Psych: alert, normal mood/affect, facial droop (Left), motor weakness ( Left upper and lower extremity) ICD10 Worksheet Patient Problems: Problems Problem Status Onset Acute ischemic stroke Acute Carotid stenosis, bilateral Acute Diabetes Acute
[2018-12-29] MEDS ORDERED: ENOXAPARIN 40 MG/0.4 ML SYR SC SCH (16:00)
--- NOTE | 2018-12-29 16:42 | PDOREHIP ---
Admission [facility] - Admission - 3 Day Assessment Period Admission Date/Day 1: 12/23/18 Day 2: 12/24/18 Day 3: 12/25/18 - Active Diagnoses Comorbidities and Co-existing Conditions at Admission: 22524. DM (e.g. diabetic retinopathy, nephropathy, and neuropathy) - Skin Conditions Unhealed Pressure Ulcer (1 or more/Stage 1 or >)-Admission: 0. No # Stage 1 Pressure Ulcers-Admission: 0 # Stage 2 Pressure Ulcers-Admission: 0 # Stage 3 Pressure Ulcers-Admission: 0 # Stage 4 Pressure Ulcers-Admission: 0 # Unstageable Pressure Ulcers (Non-remove Dress)-Admission: 0 # Unstageable Pressure Ulcers (Slough/Eschar)-Admission: 0 # Unstageable Pressure Ulcers (Deep Tissue Injury)-Admission: 0 Discharge [facility] - Discharge - 3 Day Assessment Period 2 Days Prior to Anticipated Discharge Date: 12/28/18 1 Day Prior to Anticipated Discharge Date: 12/29/18 Anticipated Discharge Date: 12/30/18 - Discharge Skin Conditions Unhealed Pressure Ulcer (1 or more/Stage 1 or >)-Discharge: 0. No # Stage 1 Pressure Ulcers-Discharge: 0 # Stage 2 Pressure Ulcers-Discharge: 0 # of These Stage 2 Pressure Ulcers Present on Admission: 0 # Stage 3 Pressure Ulcers-Discharge: 0 # of These Stage 3 Pressure Ulcers Present on Admission: 0 # Stage 4 Pressure Ulcers-Discharge: 0 # of These Stage 4 Pressure Ulcers Present on Admission: 0 # Unstageable Pressure Ulcers (Non-remove Dress)-Discharge: 0 # These Unstageable Pressure Ulcers (NRD)-Present on Admit: 0 # Unstageable Pressure Ulcers (Slough/Eschar)-Discharge: 0 # These Unstageable Pressure Ulcers(Slough) Present on Admit: 0 # Unstageable Pressure Ulcers (Deep Tissue Injury)-Discharge: 0 # These Unstageable Pressure Ulcers (DTI) Present on Admit: 0
[2018-12-29] MEDS: INSULIN GLARGINE 100 UNITS/ML UNIT SC SCH (20:22)
[2018-12-30 06:28] VITALS: BP 132/78
[2018-12-30] MEDS: FLUOXETINE 4 MG/ML 30 ML BOTTLE PO SCH (09:46)
[2018-12-30] MEDS: LISINOPRIL 20 MG TAB PO SCH (09:47)
[2018-12-30] MEDS: ASPIRIN 81 MG CHEWABLE TAB PO SCH (09:47)
[2018-12-30] MEDS: ATORVASTATIN CALCIUM 40 MG TAB PO SCH (09:47)
[2018-12-30] MEDS: INSULIN LISPRO 100 UNIT/ML SC SCH (09:49)
[2018-12-30] MEDS ORDERED: PRAZOSIN HCL 1 MG CAP ONE (14:27)
--- NOTE | 2018-12-31 06:45 | GDS ---
[f rep st] DISCHARGE SUMMARY ADMITTING DIAGNOSIS: Cerebrovascular accident with left-sided weakness in a patient with history of a right [id number] amputation. DISCHARGE DIAGNOSES: Cerebrovascular accident with left-sided weakness in a patient with history of a right qjohc-[id number]-upic amputation. OTHER DISCHARGE DIAGNOSES: 1. Dysarthria and dysphagia. 2. Internal carotid artery stenosis. 3. Diabetes mellitus type 2. COMPLICATIONS: There were none. CONSULTATIONS: There were none. PROCEDURES: There were none. HISTORY AND HOSPITAL COURSE: This patient was admitted from [facility]. She was admitted there on 12/19/2018, with confusion , left-sided weakness and a left facial droop. Head CT ruled out any hemorrhage. CT angiogram of the head and neck showed critical stenosis of the left internal carotid artery at 99% occlusion and 60% occlusion of the right internal carotid artery. A brain MRI showed multiple acute strokes in a watershed distribution in the right frontal, parietal, and occipital lobes. She had addition of amlodipine for hypertension and atorvastatin for dyslipidemia. Her insulin was adjusted. She was stable and appropriate for inpatient rehabilitation. Of note, there was an intracardiac shunt noted on echocardiogram. She had gradual progress in rehabilitation. Her initial functional independence measure was 32 on 12/25/2018. This is consistent with needing assistance in most mobility tasks and activities of daily living. By the day before discharge, family was trained for transfer techniques including car transfer. She required moderate assist of 2 people for bed mobility including supine to sit. She did a squat pivot transfer to a wheelchair from bed with maximal assist of 2. She was able to comb her hair with setup. Upper body dressing required moderate assist and lower body dressing required total assist. She was able to bathe with minimal assist. She needed a maximal assist of 2 people to do a shower transfer with a tub transfer bench. Standing balance required moderate assist of 2 people. She continued to have severe dysphagia. There was a significant oral hold with purees and thickened liquids. She continued on a pureed diet with honey thick liquids. She also was noted to have [id number] cognitive and communication impairment including memory, attention, problem solving, executive functions and orientation. Regarding secondary prevention of cerebrovascular accident, she was continued on glycemic control with insulins, blood pressure control, lipid control, as well as aspirin. Fluoxetine was initiated on 12/24/2018, for neuro recovery as she has a hemiplegic stroke. She tolerated a low dose of 10 mg q.day, and this was increased to 20 mg q.day on the day of discharge. Regarding her internal carotid artery stenosis, at her age with diabetes and poor functional status requiring assistance for most mobility related tasks and ADLs, she was a high risk candidate for surgery. Risk for severe complications was as high as 17% and surgery on the right internal carotid artery would reduce her subsequent risk of stroke by about 6.5%. Risk for recurrent laryngeal nerve damage was approximately 6%, which would greatly impair her prognosis to improve her swallowing. After a discussion with surgeon, Dr. Barriga, plan was made for a clinic visit with Dr. Barriga later in the week of discharge to have further discussion with the patient and her son and decide regarding whether to proceed with surgery. A full goals of care discussion took place with the patient and her son on 12/25. She understood cardiac arrest and the consequence of end of life if there was no intervention. She understood the low likelihood of successful outcome of attempted resuscitation including the possibility of further neurologic damage. She chose full cardiac resuscitation. [employer] met with the patient and her son and completed paperwork for her son to be officially medical [id number]. DISCHARGE PLAN: Condition upon discharge is good. However, she continues to require assistance with all aspects of mobility and activities of daily living. Discharge destination is home with family. Diet is 1800 kilocalories per day. No concentrated sweets, pureed texture with honey thickened liquids. Activity is ad silverio but she needs assistance with all mobility and activities of daily living. She continues to have no known drug allergies. MEDICATIONS UPON DISCHARGE: 1. Acetaminophen 650 mg p.o. q.4 hours p.r.n. 2. Aspirin 81 mg p.o. q.day. 3. Atorvastatin 40 mg p.o. q.day. 4. Enoxaparin 40 mg subcutaneous q.day, which should continue 5-6 weeks post stroke which would be toward the middle of February for discontinuation. 5. Fluoxetine 20 mg p.o. q.day. 6. Insulin detemir 8 units subcutaneous q.h.s. 7. Insulin lispro on a sliding scale, t.i.d. with meals. 8. Lisinopril 20 mg p.o. q.day. 9. Polyethylene glycol 17 g p.o. q.day p.r.n. 10. Senna/docusate 1-2 tablets p.o. b.i.d. ISSUES TO BE ADDRESSED AT FOLLOWUP: 1. Mobility, functional status and swallowing. She will continue PT, OT, and HISTOTECHNOLOGIST at home. 2. Hypertension, diabetes, and dyslipidemia. She can follow up with primary care provider at the [facility]. 3. Carotid artery stenosis. She will follow up with surgeon, Dr. Joey Barriga, in approximately 1 week. Copy requested to: Primary Care Provider [facility] /[id number]/MODL MTDD
== END 2018-12-30 16:30 | disposition home health service (06) | DRG 57 ==
LOC: BREH 15:34
PROVIDERS: ADMIT Internal Medicine Hospice and Palliative Medicine; ATTEND Internal Medicine Hospice and Palliative Medicine
PROC: F08Z7ZZ Vocational Activities and Functional Community or Work Reintegration Skills Treatment (ICD-10-PCS; principal; 2018-12-23)
PROC: F07M3ZZ Motor Function Treatment of Musculoskeletal System - Whole Body (ICD-10-PCS; principal; 2018-12-23)
PROC: F0636ZZ Communicative/Cognitive Integration Skills Treatment of Neurological System - Whole Body (ICD-10-PCS; principal; 2018-12-23)
DX: I69.354 Hemiplegia and hemiparesis following cerebral infarction affecting left non-dominant side (principal); I69.391 Dysphagia following cerebral infarction; I69.322 Dysarthria following cerebral infarction; I69.392 Facial weakness following cerebral infarction; I65.23 Occlusion and stenosis of bilateral carotid arteries; R41.4 Neurologic neglect syndrome; E11.9 Type 2 diabetes mellitus without complications; I10 Essential (primary) hypertension; E78.5 Hyperlipidemia, unspecified; R33.9 Retention of urine, unspecified; Z79.4 Long term (current) use of insulin; Z85.3 Personal history of malignant neoplasm of breast; Z89.511 Acquired absence of right leg below knee
CPT/HCPCS: 92507-GN; 92523-GN; 92526-GN; 92610-GN; 97112-GO; 97112-GP; 97163-GP; 97166-GO; 97530-GO; 97530-GP; 97535-GO; 97542-GP; J1650; J1815